=== PATIENT | male | born 1995 | race African-American/Black ===

== ENCOUNTER 2017-10-04 14:12 | Inpatient (IN) | payer MEDICAID ==
[~2017-10-04] VITALS: Ht 172.7 cm; Wt 60.4 kg
[2017-10-04] MEDS ORDERED: SODIUM CHLORIDE 0.9% 1,000 ML IV ONE ×2 (14:15)
[2017-10-04] MEDS ORDERED: INSULIN REGULAR, HUMAN 100 UNITS/ML IVP ONE (14:15)
[2017-10-04 14:39] LABS: HEMATOCRIT 40.6 % (41-53); HEMOGLOBIN 12.9 g/dL (13.5-17.5); MEAN CORPUSCULAR HEMOGLOBIN 30.5 pg (26.0-34.0); MEAN CORPUSCULAR HGB CONC 31.9 G/dL (31.0-37.0); MEAN CORPUSCULAR VOLUME 96 fL (80-100); PLATELET COUNT (AUTO) 331 K/uL (150-450); RED BLOOD CELL COUNT(AUTO) 4.24 MIL/uL (4.50-5.90); RED CELL DISTRIBUTION WIDTH 17.7 % (11.5-14.5)
[2017-10-04 14:45] LABS: WHITE BLOOD COUNT (AUTO) 31.5 K/uL (4.5-11.0)
[2017-10-04 14:50] LABS: INR 1.1 (0.9-1.1)
[2017-10-04 14:52] LABS: ABG BASE EXCESS -35.8 mmol/L (-2.0-3.0); ABG OXYHEMOGLOBIN 97.2 % (94.0-100.0); ABG PCO2 11 mmHg (35-45); ABG PH 6.646 (7.350-7.450); TEMPERATURE, FAHRENHEIT, BG 98.6 FAHREN (96.0-98.6)
[2017-10-04 14:53] LABS: ABG HCO3 2.2 mmol/L (22.0-26.0); ALLEN TEST, BLOOD GAS Positive
[2017-10-04] MEDS ORDERED: INSLAN SQ (14:53)
[2017-10-04] MEDS ORDERED: VECURONIUM BROMIDE 10 MG/VIAL IVP ONE (15:00)
[2017-10-04 15:12] LABS: AMMONIA 140 umol/L (11-32); TROPONIN I < 0.02 ng/mL (0.00-0.05)
[2017-10-04 15:17] LABS: B-TYPE NATRIURETIC PEPTIDE 83 pg/mL (0-100)
[2017-10-04 15:23] LABS: APPEARANCE,URINE CLOUDY (CLEAR); GLUCOSE, URINE (UA) >=1000 mg/dL (NEGATIVE); KETONES,URINE >=80 mg/dL (NEGATIVE); LEUKOCYTE ESTERASE ,URINE NEGATIVE (NEGATIVE); OCCULT BLOOD,URINE TRACE (NEGATIVE); PH,URINE 5.5 (5.0-8.0); PROTEIN,URINE POS 1+ (NEGATIVE)
[2017-10-04 15:25] LABS: ALANINE AMINOTRANSFERASE 19 U/L (12-78); ALBUMIN 3.2 g/dL (3.4-5.0); ASPARTATE AMINOTRANSFERASE 17 U/L (15-37); BILIRUBIN,TOTAL 0.4 mg/dL (0.1-1.0); CALCIUM, TOTAL 8.2 mg/dL (8.8-10.5); CHLORIDE 97 mmol/L (98-107); CREATINE KINASE MB 2.3 ng/mL (0-5); CREATINE KINASE, TOTAL 250 U/L (39-308); CREATININE 2.16 mg/dL (0.60-1.30); GLOMERULAR FILTR. RATE CALC 47 mL/min (>60); POTASSIUM 5.2 mmol/L (3.5-5.1); SODIUM SERUM 133 mmol/L (136-145); TOTAL PROTEIN, SERUM 6.9 g/dL (6.4-8.2); UREA NITROGEN, BLOOD 37 mg/dL (7-18)
[2017-10-04 15:27] LABS: ANION GAP 31 mmol/L (8-16)
[2017-10-04 15:30] LABS: ADD UA MICROSCOPIC YES
[2017-10-04 15:34] LABS: BAND NEUTROPHILS % (MANUAL) 5 % (1-5); EOSINOPHILS % (MANUAL) 1 % (1-6); LYMPHOCYTES % (MANUAL) 11 % (22-44); METAMYELOCYTES % 1 % (0-0); REACTIVE LYMPHOCYTES 6 % (0-0); TOTAL CELLS COUNTED 100
[2017-10-04 15:37] LABS: CARBON DIOXIDE < 5 mmol/L (22-29)
[2017-10-04 15:38] LABS: RBC MORPHOLOGY COMMENT ABNORMAL RBC MORPH
[2017-10-04 15:42] LABS: SQUAMOUS EPITHELIAL CELL,UR Few /LPF (None Seen); WBC,URINE 0-2 /HPF (0-5)
[2017-10-04] MEDS ORDERED: SODIUM CHLORIDE 0.45% 1,000 ML IV PRN (15:54)
[2017-10-04] MEDS ORDERED: DEXTROSE 5%-0.45% SODIUM CHL 1,000 ML IV PRN (15:54)
[2017-10-04] MEDS ORDERED: SODIUM CHLORIDE 0.9% 1,000 ML IV SCH (15:54)
[2017-10-04] MEDS ORDERED: POTASSIUM CHL 20 MEQ/0.45% NS 1,000 ML IV PRN (15:54)
[2017-10-04] MEDS ORDERED: DEXTROSE 50%-WATER 25 GM/50 ML SYRINGE IVP PRN (16:00)
[2017-10-04] MEDS: INSULIN REGULAR, HUMAN 100 UNITS in SODIUM CHLORIDE 0.9% 99 ML IV PRN ×2 (16:34)
[2017-10-04 16:45] LABS: ACETAMINOPHEN < 2 mcg/mL (10-30)
[2017-10-04] MEDS ORDERED: CefTRIAXone 1 GM/DEXTROSE 50 ML IV ONE (16:45)
[2017-10-04 17:03] LABS: GLUCOSE,POINT OF CARE 506 MG/DL (70-110)
[2017-10-04 17:13] LABS: ABG PCO2 26 mmHg (35-45); ABG PH 6.565 (7.350-7.450); ALLEN TEST, BLOOD GAS Positive; TEMPERATURE, FAHRENHEIT, BG 86.9 FAHREN (96.0-98.6)
[2017-10-04 17:14] LABS: ABG A-A DIFF O2 50.5 mmHg (10-20.0); ABG BASE EXCESS -36.1 mmol/L (-2.0-3.0); ABG HCO3 2.1 mmol/L (22.0-26.0); ABG OXYHEMOGLOBIN 98.1 % (94.0-100.0)
[2017-10-04 17:21] LABS: CALCIUM, TOTAL 7.8 mg/dL (8.8-10.5); CHLORIDE 103 mmol/L (98-107); CREATININE 1.91 mg/dL (0.60-1.30); GLOMERULAR FILTR. RATE CALC 54 mL/min (>60); POTASSIUM 4.1 mmol/L (3.5-5.1); SODIUM SERUM 136 mmol/L (136-145); UREA NITROGEN, BLOOD 34 mg/dL (7-18)
[2017-10-04] MEDS ORDERED: SODIUM BICARBONATE [ADULT] 8.4% 50 MEQ/50 ML SYRINGE IVP ONE (17:30)
[2017-10-04 17:32] LABS: ANION GAP 28 mmol/L (8-16); CARBON DIOXIDE < 5 mmol/L (22-29)
[2017-10-04 17:58] LABS: INFLUENZA TYPE B NEGATIVE FOR TYPE B (NEGATIVE)
[2017-10-04 18:12] LABS: GLUCOSE COMMENT 1 Doctor Notified; GLUCOSE,POINT OF CARE 521 MG/DL (70-110)
[2017-10-04] MEDS: INSULIN REGULAR, HUMAN 100 UNITS/ML IVP PRN ×4 (18:18→23:09)
[2017-10-04 19:17] LABS: GLUCOSE,POINT OF CARE 370 MG/DL (70-110)
[2017-10-04 20:27] LABS: GLUCOSE COMMENT 1 Doctor Notified; GLUCOSE,POINT OF CARE 443 MG/DL (70-110)
[2017-10-04] MEDS ORDERED: PROPOFOL 1000 MG/ISO-OSM 100 ML IV PRN (21:00)
[2017-10-04 21:10] VITALS: BP 90/48
[2017-10-04 21:35] LABS: CALCIUM, TOTAL 7.8 mg/dL (8.8-10.5); CREATININE 1.86 mg/dL (0.60-1.30)
[2017-10-04 21:39] LABS: POTASSIUM 2.9 mmol/L (3.5-5.1)
[2017-10-04] MEDS ORDERED: MAGNESIUM SULFATE 4 GM/WATER 100 ML IV PRN (22:30)
[2017-10-04] MEDS ORDERED: MAGNESIUM SULFATE 2 GM in DEXTROSE 5%-WATER 50 ML IV PRN (22:30)
[2017-10-04] MEDS ORDERED: SODIUM CHLORIDE 0.9% 250 ML IV ONE (22:35)
[2017-10-04] MEDS: POTASSIUM CHL 10 MEQ/WATER 50 ML IV PRN ×2 (22:38→23:18)
[2017-10-04] MEDS: POTASSIUM CHLORIDE 40 MEQ in SODIUM CHLORIDE 0.45% 1,000 ML IV PRN (23:10)
[2017-10-04 23:13] LABS: GLUCOSE COMMENT 1 Received Meds; GLUCOSE,POINT OF CARE 349 MG/DL (70-110)
[2017-10-05] VITALS: BP 101/59
[2017-10-05] MEDS: POTASSIUM CHL 10 MEQ/WATER 50 ML IV PRN (00:10)
[2017-10-05] MEDS: INSULIN REGULAR, HUMAN 100 UNITS/ML IVP PRN ×2 (00:12→02:15)
[2017-10-05 00:35] LABS: CALCIUM, TOTAL 7.9 mg/dL (8.8-10.5); CREATININE 1.78 mg/dL (0.60-1.30); POTASSIUM 3.7 mmol/L (3.5-5.1)
[2017-10-05 01:17] LABS: GLUCOSE COMMENT 1 Received Meds; GLUCOSE,POINT OF CARE 276 MG/DL (70-110)
[2017-10-05 01:17] LABS: GLUCOSE COMMENT 1 Received Meds; GLUCOSE,POINT OF CARE 307 MG/DL (70-110)
[2017-10-05 01:33] LABS: GLUCOSE COMMENT 1 Received Meds; GLUCOSE,POINT OF CARE 239 MG/DL (70-110)
[2017-10-05] MEDS: INSULIN REGULAR, HUMAN 100 UNITS in SODIUM CHLORIDE 0.9% 99 ML IV PRN ×4 (02:42→10:24)
[2017-10-05] MEDS ORDERED: 0.9% SODIUM CHLORIDE 10 ML SYRINGE IVP PRN (03:15)
[2017-10-05] MEDS: POTASSIUM CHLORIDE 40 MEQ in SODIUM CHLORIDE 0.45% 1,000 ML IV PRN ×4 (03:32→09:23)
[2017-10-05 04:00] VITALS: BP 101/51
[2017-10-05 05:47] LABS: ALANINE AMINOTRANSFERASE 20 U/L (12-78); ALBUMIN 2.8 g/dL (3.4-5.0); ANION GAP 17 mmol/L (8-16); ASPARTATE AMINOTRANSFERASE 18 U/L (15-37); BILIRUBIN,TOTAL 0.3 mg/dL (0.1-1.0); CALCIUM, TOTAL 8.1 mg/dL (8.8-10.5); CARBON DIOXIDE 12 mmol/L (22-29); CHLORIDE 116 mmol/L (98-107); CREATININE 1.83 mg/dL (0.60-1.30); GLOMERULAR FILTR. RATE CALC 57 mL/min (>60); POTASSIUM 3.8 mmol/L (3.5-5.1); SODIUM SERUM 145 mmol/L (136-145); TOTAL PROTEIN, SERUM 5.8 g/dL (6.4-8.2); UREA NITROGEN, BLOOD 28 mg/dL (7-18)
[2017-10-05 05:57] LABS: PHOSPHORUS < 0.5 mg/dL (2.5-4.9)
[2017-10-05] MEDS ORDERED: POTASSIUM PHOS,M-BASIC-D-BASIC 20 MMOL in SODIUM CHLORIDE 0.45% 500 ML IV ONE (06:30)
[2017-10-05 07:32] LABS: OSMOLALITY 328 mOS/kg (270-310)
[2017-10-05] MEDS: PROPOFOL 1000 MG/ISO-OSM 100 ML IV PRN ×3 (07:42→20:20)
[2017-10-05 08:00] VITALS: BP 120/64
[2017-10-05 08:01] LABS: ABG A-A DIFF O2 55.2 mmHg (10-20.0); ABG BASE EXCESS -16.3 mmol/L (-2.0-3.0); ABG HCO3 13.1 mmol/L (22.0-26.0); ABG OXYHEMOGLOBIN 98.3 % (94.0-100.0); ABG PCO2 28 mmHg (35-45); TEMPERATURE, FAHRENHEIT, BG 98.8 FAHREN (96.0-98.6)
[2017-10-05 08:02] LABS: ABG PH 7.222 (7.350-7.450); ALLEN TEST, BLOOD GAS Positive
[2017-10-05] MEDS: PANTOPRAZOLE SODIUM 40 MG/VIAL IVP SCH (08:03)
[2017-10-05 09:13] LABS: GLUCOSE,POINT OF CARE 125 MG/DL (70-110)
[2017-10-05 09:13] LABS: GLUCOSE COMMENT 1 Received Meds; GLUCOSE,POINT OF CARE 191 MG/DL (70-110)
[2017-10-05 09:17] LABS: GLUCOSE COMMENT 1 Received Meds; GLUCOSE,POINT OF CARE 179 MG/DL (70-110)
[2017-10-05 09:17] LABS: GLUCOSE COMMENT 1 Received Meds; GLUCOSE,POINT OF CARE 187 MG/DL (70-110)
[2017-10-05 09:17] LABS: GLUCOSE COMMENT 1 Received Meds; GLUCOSE,POINT OF CARE 256 MG/DL (70-110)
[2017-10-05 09:17] LABS: GLUCOSE COMMENT 1 Received Meds; GLUCOSE,POINT OF CARE 222 MG/DL (70-110)
[2017-10-05 09:17] LABS: GLUCOSE COMMENT 1 Received Meds; GLUCOSE,POINT OF CARE 229 MG/DL (70-110)
[2017-10-05 09:17] LABS: GLUCOSE COMMENT 1 Received Meds; GLUCOSE,POINT OF CARE 173 MG/DL (70-110)
[2017-10-05] MEDS ORDERED: MAGNESIUM SULFATE 2 GM in DEXTROSE 5%-WATER 50 ML IV ONE (10:00)
[2017-10-05 11:04] LABS: HEMATOCRIT 34.2 % (41-53); HEMOGLOBIN 11.5 g/dL (13.5-17.5); MEAN CORPUSCULAR HEMOGLOBIN 31.2 pg (26.0-34.0); MEAN CORPUSCULAR HGB CONC 33.7 G/dL (31.0-37.0); MEAN CORPUSCULAR VOLUME 92 fL (80-100); PLATELET COUNT (AUTO) 272 K/uL (150-450); RED CELL DISTRIBUTION WIDTH 17.4 % (11.5-14.5); WHITE BLOOD COUNT (AUTO) 20.2 K/uL (4.5-11.0)
[2017-10-05 11:46] LABS: ANION GAP 7 mmol/L (8-16); CARBON DIOXIDE 18 mmol/L (22-29); CHLORIDE 120 mmol/L (98-107); CREATININE 1.72 mg/dL (0.60-1.30); GLOMERULAR FILTR. RATE CALC > 60 mL/min (>60); POTASSIUM 3.8 mmol/L (3.5-5.1); SODIUM SERUM 145 mmol/L (136-145); UREA NITROGEN, BLOOD 24 mg/dL (7-18)
[2017-10-05 12:00] VITALS: BP 125/70
[2017-10-05 12:30] LABS: RBC MORPHOLOGY COMMENT ABNORMAL R
[2017-10-05] MEDS ORDERED: INSULIN GLARGINE,HUM.REC.ANLOG 100 UNITS/ML SQ ONE (12:30)
[2017-10-05 12:32] LABS: GLUCOSE,POINT OF CARE 57 MG/DL (70-110)
[2017-10-05 12:32] LABS: GLUCOSE,POINT OF CARE 89 MG/DL (70-110)
[2017-10-05 12:32] LABS: GLUCOSE,POINT OF CARE 108 MG/DL (70-110)
[2017-10-05 12:40] LABS: BAND NEUTROPHILS % (MANUAL) 9 % (1-5); LYMPHOCYTES % (MANUAL) 8 % (22-44); TOTAL CELLS COUNTED 100
[2017-10-05] MEDS ORDERED: [UNRECOGNIZED DRUG - REMARK] IV PRN ×2 (13:00)
[2017-10-05] MEDS: INSULIN REGULAR, HUMAN 100 UNITS/ML SQ PRN ×4 (13:02→23:37)
[2017-10-05 14:03] LABS: GLUCOSE,POINT OF CARE 134 MG/DL (70-110)
[2017-10-05] MEDS ORDERED: SODIUM BICARBONATE [ADULT] 8.4% 50 MEQ/50 ML SYRINGE IVP ONE (15:15)
[2017-10-05 16:00] VITALS: BP 156/75
[2017-10-05 16:26] LABS: ABG A-A DIFF O2 43.8 mmHg (10-20.0); ABG BASE EXCESS -9.7 mmol/L (-2.0-3.0); ABG HCO3 18.2 mmol/L (22.0-26.0); ABG OXYHEMOGLOBIN 97.7 % (94.0-100.0); ABG PCO2 22 mmHg (35-45); ABG PH 7.444 (7.350-7.450); ALLEN TEST, BLOOD GAS Positive; TEMPERATURE, FAHRENHEIT, BG 98.8 FAHREN (96.0-98.6)
[2017-10-05] MEDS: CefTRIAXone 1 GM/DEXTROSE 50 ML IV SCH (16:29)
[2017-10-05 17:42] LABS: MAGNESIUM 2.2 mg/dL (1.80-2.40)
[2017-10-05 18:08] LABS: PHOSPHORUS 0.8 mg/dL (2.5-4.9)
[2017-10-05 20:00] VITALS: BP 118/74
[2017-10-05] MEDS ORDERED: DEXTROSE 5% IV ONE (20:00)
[2017-10-05] MEDS ORDERED: WATER IV ONE (20:00)
[2017-10-05] MEDS ORDERED: SODIUM CHLORIDE 0.45% 1,000 ML IV SCH (20:00)
[2017-10-05] MEDS ORDERED: POTASSIUM PHOS M BASIC D BASIC IV ONE (20:00)
[2017-10-05 20:29] LABS: ANION GAP 17 mmol/L (8-16); CALCIUM, TOTAL 8.7 mg/dL (8.8-10.5); CARBON DIOXIDE 16 mmol/L (22-29); CHLORIDE 118 mmol/L (98-107); CREATININE 1.52 mg/dL (0.60-1.30); GLOMERULAR FILTR. RATE CALC > 60 mL/min (>60); POTASSIUM 3.1 mmol/L (3.5-5.1); SODIUM SERUM 151 mmol/L (136-145); UREA NITROGEN, BLOOD 22 mg/dL (7-18)
[2017-10-05] MEDS: DEXTROSE 50%-WATER 25 GM/50 ML SYRINGE IVP PRN (21:13)
[2017-10-06] VITALS: BP 111/62
[2017-10-06 00:23] LABS: ANION GAP 15 mmol/L (8-16); CALCIUM, TOTAL 8.1 mg/dL (8.8-10.5); CARBON DIOXIDE 16 mmol/L (22-29); CHLORIDE 116 mmol/L (98-107); CREATININE 1.69 mg/dL (0.60-1.30); GLOMERULAR FILTR. RATE CALC > 60 mL/min (>60); POTASSIUM 3.6 mmol/L (3.5-5.1); SODIUM SERUM 147 mmol/L (136-145); UREA NITROGEN, BLOOD 23 mg/dL (7-18)
[2017-10-06] MEDS: INSULIN REGULAR, HUMAN 100 UNITS/ML SQ PRN (01:09)
[2017-10-06] MEDS: PROPOFOL 1000 MG/ISO-OSM 100 ML IV PRN ×5 (01:25→19:47)
[2017-10-06 04:00] VITALS: BP 121/72
[2017-10-06 05:12] LABS: GLUCOSE,POINT OF CARE 121 MG/DL (70-110)
[2017-10-06 05:12] LABS: GLUCOSE,POINT OF CARE 56 MG/DL (70-110)
[2017-10-06 05:12] LABS: GLUCOSE,POINT OF CARE 87 MG/DL (70-110)
[2017-10-06 05:12] LABS: GLUCOSE COMMENT 1 Received Meds; GLUCOSE,POINT OF CARE 189 MG/DL (70-110)
[2017-10-06 05:12] LABS: GLUCOSE,POINT OF CARE 162 MG/DL (70-110)
[2017-10-06 05:32] LABS: GLUCOSE,POINT OF CARE 124 MG/DL (70-110)
[2017-10-06 05:33] LABS: GLUCOSE,POINT OF CARE 95 MG/DL (70-110)
[2017-10-06 05:37] LABS: HEMATOCRIT 32.1 % (41-53); HEMOGLOBIN 10.8 g/dL (13.5-17.5); MEAN CORPUSCULAR HEMOGLOBIN 30.7 pg (26.0-34.0); MEAN CORPUSCULAR HGB CONC 33.5 G/dL (31.0-37.0); MEAN CORPUSCULAR VOLUME 92 fL (80-100); PLATELET COUNT (AUTO) 246 K/uL (150-450); RED BLOOD CELL COUNT(AUTO) 3.51 MIL/uL (4.50-5.90); RED CELL DISTRIBUTION WIDTH 17.6 % (11.5-14.5); WHITE BLOOD COUNT (AUTO) 19.9 K/uL (4.5-11.0)
[2017-10-06 05:38] LABS: ANION GAP 14 mmol/L (8-16); CARBON DIOXIDE 18 mmol/L (22-29); CHLORIDE 116 mmol/L (98-107); CREATININE 1.62 mg/dL (0.60-1.30); GLOMERULAR FILTR. RATE CALC > 60 mL/min (>60); PHOSPHORUS 3.7 mg/dL (2.5-4.9); SODIUM SERUM 148 mmol/L (136-145); UREA NITROGEN, BLOOD 21 mg/dL (7-18)
[2017-10-06 05:43] LABS: POTASSIUM 2.8 mmol/L (3.5-5.1)
[2017-10-06 06:10] LABS: BAND NEUTROPHILS % (MANUAL) 10 % (1-5); EOSINOPHILS % (MANUAL) 1 % (1-6); LYMPHOCYTES % (MANUAL) 23 % (22-44); RBC MORPHOLOGY COMMENT ABNORMAL RBC MORPH; TOTAL CELLS COUNTED 100
[2017-10-06] MEDS ORDERED: POTASSIUM CHLORIDE 10% 40 MEQ/30 ML LIQUID UDCUP GT ONE (06:30)
[2017-10-06] MEDS ORDERED: CITRIC ACID GT ONE (06:30)
[2017-10-06] MEDS ORDERED: POTASSIUM CITRATE GT ONE (06:30)
[2017-10-06] MEDS: POTASSIUM CHL 10 MEQ/WATER 50 ML IV SCH ×4 (06:37→09:24)
[2017-10-06 07:12] LABS: GLUCOSE,POINT OF CARE 92 MG/DL (70-110)
[2017-10-06 08:00] VITALS: BP 115/67
[2017-10-06] MEDS: PANTOPRAZOLE SODIUM 40 MG/VIAL IVP SCH (08:03)
[2017-10-06] MEDS ORDERED: POTASSIUM CHLORIDE 20 MEQ in DEXTROSE 5%-WATER 1,000 ML IV ONE (10:00)
[2017-10-06 10:22] LABS: GLUCOSE,POINT OF CARE 108 MG/DL (70-110)
[2017-10-06 12:00] VITALS: BP 117/68
[2017-10-06 12:24] LABS: ANION GAP 16 mmol/L (8-16); CALCIUM, TOTAL 8.2 mg/dL (8.8-10.5); CARBON DIOXIDE 14 mmol/L (22-29); CHLORIDE 115 mmol/L (98-107); CREATININE 1.65 mg/dL (0.60-1.30); GLOMERULAR FILTR. RATE CALC > 60 mL/min (>60); PHOSPHORUS 3.2 mg/dL (2.5-4.9); POTASSIUM 3.6 mmol/L (3.5-5.1); SODIUM SERUM 145 mmol/L (136-145); UREA NITROGEN, BLOOD 20 mg/dL (7-18)
[2017-10-06] MEDS ORDERED: POTASSIUM CHL 20 MEQ/0.45% NS 1,000 ML IV PRN (13:40)
[2017-10-06] MEDS ORDERED: INSULIN REGULAR, HUMAN 100 UNITS in SODIUM CHLORIDE 0.9% 99 ML IV PRN ×2 (13:40)
[2017-10-06] MEDS ORDERED: SODIUM CHLORIDE 0.45% 1,000 ML IV PRN (13:40)
[2017-10-06] MEDS ORDERED: SODIUM CHLORIDE 0.9% 1,000 ML IV SCH (13:40)
[2017-10-06 13:42] LABS: ABG A-A DIFF O2 35.1 mmHg (10-20.0); ABG BASE EXCESS -14.6 mmol/L (-2.0-3.0); ABG HCO3 14.6 mmol/L (22.0-26.0); ABG OXYHEMOGLOBIN 97.4 % (94.0-100.0); TEMPERATURE, FAHRENHEIT, BG 99.2 FAHREN (96.0-98.6)
[2017-10-06 13:43] LABS: ABG PCO2 19 mmHg (35-45); ALLEN TEST, BLOOD GAS Positive
[2017-10-06] MEDS ORDERED: DEXTROSE 50%-WATER 25 GM/50 ML SYRINGE IVP PRN (13:45)
[2017-10-06] MEDS ORDERED: INSULIN REGULAR, HUMAN 100 UNITS/ML IVP ONE (13:45)
[2017-10-06] MEDS ORDERED: INSULIN REGULAR, HUMAN 100 UNITS/ML IVP PRN (13:45)
[2017-10-06 14:43] LABS: BASOPHILS % (AUTO) 0.3 % (0.0-2.0); EOSINOPHILS % (AUTO) 0.2 % (1.0-6.0); HEMATOCRIT 30.3 % (41-53); HEMOGLOBIN 10.2 g/dL (13.5-17.5); LYMPHOCYTES # (AUTO) 2.4 K/uL (1.0-4.8); LYMPHOCYTES % (AUTO) 14.7 % (22.0-44.0); MEAN CORPUSCULAR HEMOGLOBIN 30.9 pg (26.0-34.0); MEAN CORPUSCULAR HGB CONC 33.8 G/dL (31.0-37.0); MEAN CORPUSCULAR VOLUME 91 fL (80-100); MONOCYTES # (AUTO) 2.5 K/uL (0.1-1.0); NEUTROPHILS # (AUTO) 11.6 K/uL (1.8-7.7); NEUTROPHILS % (AUTO) 69.8 % (40.0-70.0); PLATELET COUNT (AUTO) 228 K/uL (150-450); RED BLOOD CELL COUNT(AUTO) 3.31 MIL/uL (4.50-5.90); RED CELL DISTRIBUTION WIDTH 18.4 % (11.5-14.5); WHITE BLOOD COUNT (AUTO) 16.6 K/uL (4.5-11.0)
[2017-10-06 14:57] LABS: ANION GAP 18 mmol/L (8-16); CALCIUM, TOTAL 8.3 mg/dL (8.8-10.5); CARBON DIOXIDE 12 mmol/L (22-29); CHLORIDE 112 mmol/L (98-107); CREATININE 1.65 mg/dL (0.60-1.30); GLOMERULAR FILTR. RATE CALC > 60 mL/min (>60); POTASSIUM 3.5 mmol/L (3.5-5.1); SODIUM SERUM 142 mmol/L (136-145); UREA NITROGEN, BLOOD 20 mg/dL (7-18)
[2017-10-06 16:00] VITALS: BP 132/77
[2017-10-06] MEDS: CefTRIAXone 1 GM/DEXTROSE 50 ML IV SCH (16:15)
[2017-10-06] MEDS: POTASSIUM CHLORIDE 40 MEQ in SODIUM CHLORIDE 0.45% 1,000 ML IV PRN ×2 (16:19→19:44)
[2017-10-06 16:43] LABS: RBC MORPHOLOGY COMMENT ABNORMAL RBC MORPH
[2017-10-06 19:09] LABS: ANION GAP 18 mmol/L (8-16); CALCIUM, TOTAL 8.2 mg/dL (8.8-10.5); CARBON DIOXIDE 15 mmol/L (22-29); CHLORIDE 114 mmol/L (98-107); CREATININE 1.48 mg/dL (0.60-1.30); GLOMERULAR FILTR. RATE CALC > 60 mL/min (>60); SODIUM SERUM 147 mmol/L (136-145); UREA NITROGEN, BLOOD 16 mg/dL (7-18)
[2017-10-06 19:27] LABS: POTASSIUM 2.6 mmol/L (3.5-5.1)
[2017-10-06] MEDS: DEXTROSE 5%-0.45% SODIUM CHL 1,000 ML IV PRN (19:41)
[2017-10-06] MEDS: POTASSIUM CHL 10 MEQ/WATER 50 ML IV PRN ×4 (19:45→22:01)
[2017-10-06 20:00] VITALS: BP 121/66
[2017-10-06] MEDS ORDERED: INSULIN GLARGINE,HUM.REC.ANLOG 100 UNITS/ML SQ SCH (21:00)
[2017-10-07] VITALS: BP 122/75
[2017-10-07 00:23] LABS: ANION GAP 13 mmol/L (8-16); CARBON DIOXIDE 18 mmol/L (22-29); CHLORIDE 115 mmol/L (98-107); CREATININE 1.27 mg/dL (0.60-1.30); GLOMERULAR FILTR. RATE CALC > 60 mL/min (>60); POTASSIUM 3.5 mmol/L (3.5-5.1); SODIUM SERUM 146 mmol/L (136-145); UREA NITROGEN, BLOOD 14 mg/dL (7-18)
[2017-10-07] MEDS: PROPOFOL 1000 MG/ISO-OSM 100 ML IV PRN ×5 (00:33→22:06)
[2017-10-07] MEDS: POTASSIUM CHLORIDE 40 MEQ in SODIUM CHLORIDE 0.45% 1,000 ML IV PRN (02:44)
[2017-10-07 04:00] VITALS: BP 140/90
[2017-10-07 04:52] LABS: GLUCOSE,POINT OF CARE 244 MG/DL (70-110)
[2017-10-07 04:52] LABS: GLUCOSE COMMENT 1 Received Meds; GLUCOSE,POINT OF CARE 217 MG/DL (70-110)
[2017-10-07 04:52] LABS: GLUCOSE,POINT OF CARE 237 MG/DL (70-110)
[2017-10-07 04:52] LABS: GLUCOSE COMMENT 1 Received Meds; GLUCOSE,POINT OF CARE 155 MG/DL (70-110)
[2017-10-07 04:52] LABS: GLUCOSE COMMENT 1 Received Meds; GLUCOSE,POINT OF CARE 141 MG/DL (70-110)
[2017-10-07 04:52] LABS: GLUCOSE,POINT OF CARE 93 MG/DL (70-110)
[2017-10-07 04:52] LABS: GLUCOSE,POINT OF CARE 95 MG/DL (70-110)
[2017-10-07 04:52] LABS: GLUCOSE,POINT OF CARE 241 MG/DL (70-110)
[2017-10-07 04:52] LABS: GLUCOSE,POINT OF CARE 280 MG/DL (70-110)
[2017-10-07 04:52] LABS: GLUCOSE COMMENT 1 Received Meds; GLUCOSE,POINT OF CARE 215 MG/DL (70-110)
[2017-10-07 04:52] LABS: GLUCOSE,POINT OF CARE 269 MG/DL (70-110)
[2017-10-07 04:52] LABS: GLUCOSE,POINT OF CARE 295 MG/DL (70-110)
[2017-10-07 06:12] LABS: GLUCOSE COMMENT 1 Received Meds; GLUCOSE,POINT OF CARE 190 MG/DL (70-110)
[2017-10-07] MEDS: DEXTROSE 5%-0.45% SODIUM CHL 1,000 ML IV PRN (06:26)
[2017-10-07 07:23] LABS: ALANINE AMINOTRANSFERASE 16 U/L (12-78); ALBUMIN 2.2 g/dL (3.4-5.0); ANION GAP 11 mmol/L (8-16); ASPARTATE AMINOTRANSFERASE 11 U/L (15-37); BILIRUBIN,TOTAL 0.4 mg/dL (0.1-1.0); CALCIUM, TOTAL 7.9 mg/dL (8.8-10.5); CARBON DIOXIDE 19 mmol/L (22-29); CHLORIDE 114 mmol/L (98-107); CREATININE 1.27 mg/dL (0.60-1.30); GLOMERULAR FILTR. RATE CALC > 60 mL/min (>60); PHOSPHORUS 2.7 mg/dL (2.5-4.9); SODIUM SERUM 144 mmol/L (136-145); UREA NITROGEN, BLOOD 13 mg/dL (7-18)
[2017-10-07 08:00] VITALS: BP 144/88
[2017-10-07] MEDS: PANTOPRAZOLE SODIUM 40 MG/VIAL IVP SCH (08:38)
[2017-10-07] MEDS: DEXTROSE 50%-WATER 25 GM/50 ML SYRINGE IVP PRN (09:07)
[2017-10-07] MEDS: POTASSIUM CHL 10 MEQ/WATER 50 ML IV PRN ×5 (09:50→23:52)
[2017-10-07 10:02] LABS: GLUCOSE COMMENT 1 Received Meds; GLUCOSE,POINT OF CARE 60 MG/DL (70-110)
[2017-10-07 10:02] LABS: GLUCOSE COMMENT 1 Received Meds; GLUCOSE,POINT OF CARE 99 MG/DL (70-110)
[2017-10-07 10:12] LABS: GLUCOSE COMMENT 1 Received Meds; GLUCOSE,POINT OF CARE 167 MG/DL (70-110)
[2017-10-07 10:12] LABS: GLUCOSE,POINT OF CARE 122 MG/DL (70-110)
[2017-10-07 11:28] LABS: ANION GAP 16 mmol/L (8-16); CALCIUM, TOTAL 8.2 mg/dL (8.8-10.5); CARBON DIOXIDE 14 mmol/L (22-29); CHLORIDE 113 mmol/L (98-107); CREATININE 1.19 mg/dL (0.60-1.30); GLOMERULAR FILTR. RATE CALC > 60 mL/min (>60); POTASSIUM 4.4 mmol/L (3.5-5.1); SODIUM SERUM 143 mmol/L (136-145); UREA NITROGEN, BLOOD 11 mg/dL (7-18)
[2017-10-07 11:52] LABS: GLUCOSE COMMENT 1 Received Meds; GLUCOSE,POINT OF CARE 173 MG/DL (70-110)
[2017-10-07 12:00] VITALS: BP 99/74
[2017-10-07] MEDS ORDERED: INSULIN REGULAR, HUMAN 100 UNITS/ML SQ PRN (12:45)
[2017-10-07] MEDS ORDERED: DEXTROSE 50%-WATER 25 GM/50 ML SYRINGE IVP PRN (12:45)
[2017-10-07] MEDS ORDERED: ACETAMINOPHEN 650 MG/20.3 ML SOLUTION UDCUP NG PRN ×2 (12:45→13:30)
[2017-10-07] MEDS: SODIUM CHLORIDE 0.45% 1,000 ML IV SCH ×2 (12:57→20:04)
[2017-10-07] MEDS: INSULIN REGULAR, HUMAN 100 UNITS/ML SQ PRN (13:05)
[2017-10-07 13:07] LABS: GLUCOSE COMMENT 1 Received Meds; GLUCOSE,POINT OF CARE 225 MG/DL (70-110)
[2017-10-07 13:12] LABS: GLUCOSE COMMENT 1 Received Meds; GLUCOSE,POINT OF CARE 214 MG/DL (70-110)
[2017-10-07 13:32] LABS: ANION GAP 13 mmol/L (8-16); CARBON DIOXIDE 16 mmol/L (22-29); CHLORIDE 111 mmol/L (98-107); POTASSIUM 3.7 mmol/L (3.5-5.1); UREA NITROGEN, BLOOD 14 mg/dL (7-18)
[2017-10-07 13:33] LABS: CALCIUM, TOTAL 7.9 mg/dL (8.8-10.5); CREATININE 1.33 mg/dL (0.60-1.30); GLOMERULAR FILTR. RATE CALC > 60 mL/min (>60); SODIUM SERUM 140 mmol/L (136-145)
[2017-10-07 14:51] LABS: TEMPERATURE, FAHRENHEIT, BG 98.2 FAHREN (96.0-98.6)
[2017-10-07 14:53] LABS: ABG A-A DIFF O2 125.4 mmHg (10-20.0); ABG BASE EXCESS -16.5 mmol/L (-2.0-3.0); ABG HCO3 13.6 mmol/L (22.0-26.0)
[2017-10-07 14:54] LABS: ABG PCO2 15 mmHg (35-45); ALLEN TEST, BLOOD GAS Positive
[2017-10-07] MEDS ORDERED: SODIUM PHOS,M-BASIC-D-BASIC 30 MMOL in DEXTROSE 5%-WATER 250 ML IV ONE (15:00)
[2017-10-07 16:00] VITALS: BP 138/61
[2017-10-07] MEDS ORDERED: SODIUM CHLORIDE 0.9% 250 ML IV ONE (16:07)
[2017-10-07 16:39] LABS: ANION GAP 13 mmol/L (8-16); CALCIUM, TOTAL 8.1 mg/dL (8.8-10.5); CARBON DIOXIDE 15 mmol/L (22-29); CHLORIDE 114 mmol/L (98-107); CREATININE 1.23 mg/dL (0.60-1.30); GLOMERULAR FILTR. RATE CALC > 60 mL/min (>60); POTASSIUM 4.5 mmol/L (3.5-5.1); SODIUM SERUM 142 mmol/L (136-145); UREA NITROGEN, BLOOD 11 mg/dL (7-18)
[2017-10-07] MEDS: CefTRIAXone 1 GM/DEXTROSE 50 ML IV SCH (16:46)
[2017-10-07 17:53] LABS: GLUCOSE COMMENT 1 Received Meds; GLUCOSE,POINT OF CARE 220 MG/DL (70-110)
[2017-10-07] MEDS ORDERED: DEXTROSE 5%-0.45% SODIUM CHL 1,000 ML IV ONE (20:27)
[2017-10-07] MEDS: DEXTROSE 5%-0.45% SODIUM CHL 1,000 ML IV SCH (20:29)
[2017-10-07] MEDS: INSULIN GLARGINE,HUM.REC.ANLOG 100 UNITS/ML SQ SCH (20:31)
[2017-10-07] MEDS: INSULIN REGULAR, HUMAN 100 UNITS in SODIUM CHLORIDE 0.9% 99 ML IV SCH ×2 (20:50)
[2017-10-07 21:28] LABS: ANION GAP 13 mmol/L (8-16); CALCIUM, TOTAL 7.5 mg/dL (8.8-10.5); CARBON DIOXIDE 19 mmol/L (22-29); CHLORIDE 111 mmol/L (98-107); CREATININE 1.05 mg/dL (0.60-1.30); GLOMERULAR FILTR. RATE CALC > 60 mL/min (>60); POTASSIUM 3.1 mmol/L (3.5-5.1); SODIUM SERUM 143 mmol/L (136-145); UREA NITROGEN, BLOOD 10 mg/dL (7-18)
[2017-10-07 22:58] LABS: GLUCOSE,POINT OF CARE 202 MG/DL (70-110)
[2017-10-07 22:58] LABS: GLUCOSE COMMENT 1 Doctor Notified; GLUCOSE,POINT OF CARE 196 MG/DL (70-110)
[2017-10-07 22:58] LABS: GLUCOSE COMMENT 1 Received Meds; GLUCOSE,POINT OF CARE 195 MG/DL (70-110)
[2017-10-07] MEDS ORDERED: MAGNESIUM SULFATE 4 GM/WATER 100 ML IV ONE (23:30)
[2017-10-08] VITALS (7 sets, daily range): BP systolic 105–123; BP diastolic 61–76
[2017-10-08] MEDS: POTASSIUM CHL 10 MEQ/WATER 50 ML IV PRN ×11 (00:49→21:04)
[2017-10-08 01:28] LABS: ANION GAP 13 mmol/L (8-16); CALCIUM, TOTAL 7.4 mg/dL (8.8-10.5); CARBON DIOXIDE 19 mmol/L (22-29); CHLORIDE 110 mmol/L (98-107); CREATININE 1.02 mg/dL (0.60-1.30); GLOMERULAR FILTR. RATE CALC > 60 mL/min (>60); POTASSIUM 3.3 mmol/L (3.5-5.1); SODIUM SERUM 142 mmol/L (136-145); UREA NITROGEN, BLOOD 8 mg/dL (7-18)
[2017-10-08] MEDS: PROPOFOL 1000 MG/ISO-OSM 100 ML IV PRN ×2 (02:42→09:19)
[2017-10-08 03:22] LABS: GLUCOSE COMMENT 1 Received Meds; GLUCOSE,POINT OF CARE 227 MG/DL (70-110)
[2017-10-08 03:22] LABS: GLUCOSE COMMENT 1 Received Meds; GLUCOSE,POINT OF CARE 245 MG/DL (70-110)
[2017-10-08 03:22] LABS: GLUCOSE COMMENT 1 Received Meds; GLUCOSE,POINT OF CARE 221 MG/DL (70-110)
[2017-10-08 03:22] LABS: GLUCOSE COMMENT 1 Received Meds; GLUCOSE,POINT OF CARE 212 MG/DL (70-110)
[2017-10-08] MEDS: DEXTROSE 5%-0.45% SODIUM CHL 1,000 ML IV SCH ×3 (03:41→20:23)
[2017-10-08 05:04] LABS: BASOPHILS # (AUTO) 0.07 K/uL (0.00-0.20); BASOPHILS % (AUTO) 0.5 % (0.0-2.0); EOSINOPHILS # (AUTO) 0.12 K/uL (0.00-0.70); EOSINOPHILS % (AUTO) 0.83 % (1.0-6.0); HEMATOCRIT 29.3 % (41-53); HEMOGLOBIN 9.8 g/dL (13.5-17.5); LYMPHOCYTES # (AUTO) 2.3 K/uL (1.0-4.8); LYMPHOCYTES % (AUTO) 15.1 % (22.0-44.0); MEAN CORPUSCULAR HEMOGLOBIN 30.9 pg (26.0-34.0); MEAN CORPUSCULAR HGB CONC 33.6 G/dL (31.0-37.0); MEAN CORPUSCULAR VOLUME 92 fL (80-100); MONOCYTES # (AUTO) 1.8 K/uL (0.1-1.0); NEUTROPHILS # (AUTO) 10.8 K/uL (1.8-7.7); NEUTROPHILS % (AUTO) 71.6 % (40.0-70.0); PLATELET COUNT (AUTO) 178 K/uL (150-450); RED BLOOD CELL COUNT(AUTO) 3.18 MIL/uL (4.50-5.90); RED CELL DISTRIBUTION WIDTH 18.3 % (11.5-14.5)
[2017-10-08 05:22] LABS: ANION GAP 10 mmol/L (8-16); CALCIUM, TOTAL 7.4 mg/dL (8.8-10.5); CARBON DIOXIDE 19 mmol/L (22-29); CHLORIDE 114 mmol/L (98-107); CREATININE 1.07 mg/dL (0.60-1.30); GLOMERULAR FILTR. RATE CALC > 60 mL/min (>60); PHOSPHORUS 3.9 mg/dL (2.5-4.9); POTASSIUM 3.4 mmol/L (3.5-5.1); SODIUM SERUM 143 mmol/L (136-145); UREA NITROGEN, BLOOD 8 mg/dL (7-18)
[2017-10-08 07:38] LABS: GLUCOSE COMMENT 1 Received Meds; GLUCOSE,POINT OF CARE 227 MG/DL (70-110)
[2017-10-08 07:42] LABS: GLUCOSE COMMENT 1 Received Meds; GLUCOSE,POINT OF CARE 228 MG/DL (70-110)
[2017-10-08 07:42] LABS: GLUCOSE COMMENT 1 Received Meds; GLUCOSE,POINT OF CARE 230 MG/DL (70-110)
[2017-10-08] MEDS: PANTOPRAZOLE SODIUM 40 MG/VIAL IVP SCH (09:25)
[2017-10-08 09:42] LABS: RBC MORPHOLOGY COMMENT ABNORMAL RBC MORPH
[2017-10-08 09:56] LABS: ABG A-A DIFF O2 30.1 mmHg (10-20.0); ABG BASE EXCESS -6.6 mmol/L (-2.0-3.0); ABG HCO3 20.4 mmol/L (22.0-26.0); ABG OXYHEMOGLOBIN 98.5 % (94.0-100.0); ABG PCO2 20 mmHg (35-45); ABG PH 7.527 (7.350-7.450); TEMPERATURE, FAHRENHEIT, BG 98.9 FAHREN (96.0-98.6)
[2017-10-08 09:57] LABS: ALLEN TEST, BLOOD GAS POS
[2017-10-08 10:12] LABS: GLUCOSE,POINT OF CARE 249 MG/DL (70-110)
[2017-10-08 10:12] LABS: GLUCOSE,POINT OF CARE 269 MG/DL (70-110)
[2017-10-08 11:35] LABS: ABG A-A DIFF O2 85.2 mmHg (10-20.0); ABG BASE EXCESS -7.5 mmol/L (-2.0-3.0); ABG HCO3 19.5 mmol/L (22.0-26.0); ABG OXYHEMOGLOBIN 96.5 % (94.0-100.0); ABG PCO2 26 mmHg (35-45); ABG PH 7.426 (7.350-7.450); TEMPERATURE, FAHRENHEIT, BG 98.9 FAHREN (96.0-98.6)
[2017-10-08 11:36] LABS: ALLEN TEST, BLOOD GAS POSITIVE
[2017-10-08 13:51] LABS: ANION GAP 11 mmol/L (8-16); CALCIUM, TOTAL 7.8 mg/dL (8.8-10.5); CARBON DIOXIDE 19 mmol/L (22-29); CHLORIDE 112 mmol/L (98-107); CREATININE 0.93 mg/dL (0.60-1.30); GLOMERULAR FILTR. RATE CALC > 60 mL/min (>60); PHOSPHORUS 4.2 mg/dL (2.5-4.9); POTASSIUM 3.6 mmol/L (3.5-5.1); SODIUM SERUM 142 mmol/L (136-145); UREA NITROGEN, BLOOD 7 mg/dL (7-18)
[2017-10-08 15:08] LABS: GLUCOSE COMMENT 1 Received Meds; GLUCOSE,POINT OF CARE 245 MG/DL (70-110)
[2017-10-08 17:42] LABS: ANION GAP 8 mmol/L (8-16); CARBON DIOXIDE 21 mmol/L (22-29); CHLORIDE 113 mmol/L (98-107); CREATININE 0.99 mg/dL (0.60-1.30); GLOMERULAR FILTR. RATE CALC > 60 mL/min (>60); POTASSIUM 3.4 mmol/L (3.5-5.1); SODIUM SERUM 142 mmol/L (136-145); UREA NITROGEN, BLOOD 7 mg/dL (7-18)
[2017-10-08] MEDS: CefTRIAXone 1 GM/DEXTROSE 50 ML IV SCH (19:08)
[2017-10-08] MEDS: OXYGEN THERAPY IH SCH ×2 (19:08→20:00)
[2017-10-08 20:12] LABS: GLUCOSE,POINT OF CARE 217 MG/DL (70-110)
[2017-10-08] MEDS: INSULIN GLARGINE,HUM.REC.ANLOG 100 UNITS/ML SQ SCH (20:35)
[2017-10-08] MEDS ORDERED: INSULIN DETEMIR 100 UNITS/ML SQ SCH (21:00)
[2017-10-08] MEDS: INSULIN REGULAR, HUMAN 100 UNITS in SODIUM CHLORIDE 0.9% 99 ML IV SCH ×2 (21:20)
[2017-10-08 22:02] LABS: GLUCOSE COMMENT 1 Received Meds; GLUCOSE,POINT OF CARE 234 MG/DL (70-110)
[2017-10-09] VITALS: BP 105/68
[2017-10-09 04:00] VITALS: BP 117/80
[2017-10-09] MEDS: DEXTROSE 5%-0.45% SODIUM CHL 1,000 ML IV SCH (04:58)
[2017-10-09 05:13] LABS: ANION GAP 4 mmol/L (8-16); CALCIUM, TOTAL 7.7 mg/dL (8.8-10.5); CARBON DIOXIDE 24 mmol/L (22-29); CHLORIDE 113 mmol/L (98-107); CREATININE 0.82 mg/dL (0.60-1.30); GLOMERULAR FILTR. RATE CALC > 60 mL/min (>60); PHOSPHORUS 4.4 mg/dL (2.5-4.9); POTASSIUM 3.1 mmol/L (3.5-5.1); SODIUM SERUM 141 mmol/L (136-145); UREA NITROGEN, BLOOD 5 mg/dL (7-18)
[2017-10-09] MEDS: POTASSIUM CHL 10 MEQ/WATER 50 ML IV PRN ×3 (05:54→06:59)
[2017-10-09] MEDS ORDERED: SODIUM CHLORIDE 0.9% 50 ML ONE (05:59)
[2017-10-09 06:07] LABS: GLUCOSE COMMENT 1 Received Meds; GLUCOSE,POINT OF CARE 116 MG/DL (70-110)
[2017-10-09 06:07] LABS: GLUCOSE COMMENT 1 Received Meds; GLUCOSE,POINT OF CARE 176 MG/DL (70-110)
[2017-10-09] MEDS: OXYGEN THERAPY IH SCH (07:20)
[2017-10-09 08:00] VITALS: BP 117/75
[2017-10-09] MEDS ORDERED: DEXTROSE 50%-WATER 25 GM/50 ML SYRINGE IVP PRN (08:45)
[2017-10-09] MEDS: PANTOPRAZOLE SODIUM 40 MG/VIAL IVP SCH (09:12)
[2017-10-09] MEDS: INSULIN ASPART 100 UNITS/ML SQ PRN ×2 (11:16→17:20)
[2017-10-09] MEDS ORDERED: INSULIN GLARGINE,HUM.REC.ANLOG 100 UNITS/ML SQ ONE (11:45)
[2017-10-09 12:00] VITALS: BP 114/76
[2017-10-09 13:36] VITALS: BP 116/77
[2017-10-09] MEDS ORDERED: INSU100C6 SQ (15:21)
[2017-10-09 15:37] VITALS: BP 145/57
[2017-10-09] MEDS: CefTRIAXone 1 GM/DEXTROSE 50 ML IV SCH (17:00)
[2017-10-09 17:57] LABS: GLUCOSE COMMENT 1 Received Meds; GLUCOSE,POINT OF CARE 218 MG/DL (70-110)
[2017-10-09] MEDS ORDERED: INSULIN GLARGINE,HUM.REC.ANLOG 100 UNITS/ML SQ SCH (21:00)
[2017-10-10] MEDS ORDERED: INSULIN GLARGINE,HUM.REC.ANLOG 100 UNITS/ML SQ SCH ×2 (08:00)
[2017-10-10 17:38] LABS: GLUCOSE COMMENT 1 Received Meds; GLUCOSE,POINT OF CARE 220 MG/DL (70-110)
== END 2017-10-09 18:00 | disposition home or self-care (01) | DRG 469 ==
LOC: EMS 14:14 → ICU 19:17 → 5N 10-09 13:10
PROVIDERS: ADMIT Internal Medicine; ATTEND Internal Medicine
PROC: 5A1945Z Respiratory Ventilation, 24-96 Consecutive Hours (ICD-10-PCS; principal; 2017-10-04)
PROC: 0BH17EZ Insertion of Endotracheal Airway into Trachea, Via Natural or Artificial Opening (ICD-10-PCS; 2017-10-04)
DX: N17.9 Acute kidney failure, unspecified (principal); J96.00 Acute respiratory failure, unspecified whether with hypoxia or hypercapnia; G93.41 Metabolic encephalopathy; E10.10 Type 1 diabetes mellitus with ketoacidosis without coma; E44.0 Moderate protein-calorie malnutrition; E72.20 Disorder of urea cycle metabolism, unspecified; R65.10 Systemic inflammatory response syndrome (SIRS) of non-infectious origin without acute organ dysfunction; E87.0 Hyperosmolality and hypernatremia; Z68.1 Body mass index [BMI] 19.9 or less, adult; E87.1 Hypo-osmolality and hyponatremia; D72.829 Elevated white blood cell count, unspecified; E83.42 Hypomagnesemia; E83.39 Other disorders of phosphorus metabolism; E87.8 Other disorders of electrolyte and fluid balance, not elsewhere classified; E87.6 Hypokalemia; Z79.4 Long term (current) use of insulin; Z83.3 Family history of diabetes mellitus; Z91.14 Patient's other noncompliance with medication regimen; Z91.19 Patient's noncompliance with other medical treatment and regimen; Z78.1 Physical restraint status
CPT/HCPCS: 31500; 36556; 51702; 70450; 82010; 82436; 82805; 82962; 83605; 83735; 83930; 83935; 84100; 84132; 84133; 84145; 84300; 87040; 87070; 87081; 87086; 87205; 87804; 92610; 93005; 94002; 94003; 96361; 96365; 96374; 96375; 99291; C9113; G0480; G0481; J0696; J1815; J2704; J3475; J3480; J3490; J7030; J7050; J7060

== ENCOUNTER 2017-12-06 05:30 | Inpatient (IN) | payer MEDICAID ==
[~2017-12-06] VITALS: Ht 165.1 cm; Wt 55.9 kg
[~2017-12-06 05:30] MED LIST: INSLAN SQ; INSU100C6 SQ
[2017-12-06 05:43] LABS: GLUCOSE,POINT OF CARE 431 MG/DL (70-110)
[2017-12-06] MEDS ORDERED: SODIUM CHLORIDE 0.9% 1,000 ML IV ONE (06:00)
[2017-12-06 06:09] LABS: HEMATOCRIT 45.8 % (41-53); HEMOGLOBIN 14.4 g/dL (13.5-17.5); MEAN CORPUSCULAR HGB CONC 31.4 G/dL (31.0-37.0); MEAN CORPUSCULAR VOLUME 102 fL (80-100); PLATELET COUNT (AUTO) 302 K/uL (150-450); RED BLOOD CELL COUNT(AUTO) 4.48 MIL/uL (4.50-5.90)
[2017-12-06 06:18] LABS: APPEARANCE,URINE CLOUDY (CLEAR); BILIRUBIN,URINE NEGATIVE (NEGATIVE); GLUCOSE, URINE (UA) >=1000 mg/dL (NEGATIVE); KETONES,URINE >=80 mg/dL (NEGATIVE); LEUKOCYTE ESTERASE ,URINE NEGATIVE (NEGATIVE); NITRATE,URINE NEGATIVE (NEGATIVE); OCCULT BLOOD,URINE TRACE (NEGATIVE); PROTEIN,URINE POS 1+ (NEGATIVE); UROBILINOGEN,URINE 0.2 mg/dL (<=1.0)
[2017-12-06 06:23] LABS: ALANINE AMINOTRANSFERASE 19 U/L (12-78); ALKALINE PHOSPHATASE 190 U/L (46-116); BILIRUBIN,TOTAL 0.4 mg/dL (0.1-1.0); CALCIUM, TOTAL 7.7 mg/dL (8.8-10.5); CHLORIDE 98 mmol/L (98-107); CREATININE 1.22 mg/dL (0.60-1.30); GLOMERULAR FILTR. RATE CALC > 60 mL/min (>60); POTASSIUM 4.5 mmol/L (3.5-5.1); SODIUM SERUM 133 mmol/L (136-145); UREA NITROGEN, BLOOD 20 mg/dL (7-18)
[2017-12-06 06:28] LABS: GLUCOSE,RANDOM 493 mg/dL (70-110)
[2017-12-06] MEDS ORDERED: SODIUM BICARBONATE [ADULT] 8.4% 50 MEQ/50 ML SYRINGE IVP ONE ×2 (06:30→08:15)
[2017-12-06] MEDS ORDERED: INSULIN REGULAR, HUMAN 100 UNITS/ML IVP ONE ×2 (06:30→08:00)
[2017-12-06 06:35] LABS: LACTIC ACID 1.2 mmol/L (0.4-2.0)
[2017-12-06 06:37] LABS: ABG BASE EXCESS -34.1 mmol/L (-2.0-3.0); ABG CARBOXYHEMOGLOBIN 0.5 % (0.0-3.0); ABG METHEMOGLOBIN 0.4 % (0.0-1.5); ABG OXYHEMOGLOBIN 98.1 % (94.0-100.0); ABG TOTAL HEMOGLOBIN 13.6 G/dL (12.0-18.0); PO2, ARTERIAL BG 149.8 mmHg (80.0-100.0); SOURCE, BLOOD GAS ARTERIAL; TEMPERATURE, FAHRENHEIT, BG 96.3 FAHREN (96.0-98.6)
[2017-12-06 06:38] LABS: ABG HCO3 3.5 mmol/L (22.0-26.0); ABG PCO2 9 mmHg (35-45); SITE, BLOOD GAS RT RADIAL
[2017-12-06] MEDS ORDERED: INSULIN REGULAR, HUMAN 100 UNITS in SODIUM CHLORIDE 0.9% 99 ML IV PRN ×2 (06:40)
[2017-12-06] MEDS ORDERED: DEXTROSE 5%-WATER 1,000 ML IV SCH (06:40)
[2017-12-06 06:42] LABS: B-TYPE NATRIURETIC PEPTIDE 65 pg/mL (0-100)
[2017-12-06 06:43] LABS: BACTERIA,URINE Rare /HPF (None Seen); WBC,URINE 0-2 /HPF (0-5)
[2017-12-06 06:44] LABS: AMORPHOUS SEDIMENT,UR Moderate /LPF (None Seen)
[2017-12-06] MEDS ORDERED: DEXTROSE 50%-WATER 25 GM/50 ML SYRINGE IVP PRN (06:45)
[2017-12-06 06:46] LABS: BAND NEUTROPHILS % (MANUAL) 17 % (1-5); LYMPHOCYTES % (MANUAL) 13 % (22-44); MONOCYTES % (MANUAL) 8 % (2-9); REACTIVE LYMPHOCYTES 3 % (0-0); SEGMENTED NEUTROPHILS % 59 % (40-70)
[2017-12-06 06:54] LABS: ANION GAP 30 mmol/L (8-16); CARBON DIOXIDE < 5 mmol/L (22-29)
[2017-12-06 07:25] LABS: ASPARTATE AMINOTRANSFERASE 19 U/L (15-37)
[2017-12-06] MEDS ORDERED: ONDANSETRON HCL 4 MG/2 ML VIAL IVP PRN ×2 (07:30→08:00)
[2017-12-06] MEDS ORDERED: 0.9% SODIUM CHLORIDE 10 ML SYRINGE IVP PRN (07:30)
[2017-12-06] MEDS ORDERED: MAGNESIUM HYDROXIDE SUSPENSION 30 ML UDCUP PO PRN (08:00)
[2017-12-06] MEDS ORDERED: SODIUM CHLORIDE 0.45% 1,000 ML IV PRN (08:00)
[2017-12-06] MEDS ORDERED: BISACODYL 10 MG RECTAL RECTAL SUPPOSITORY PR PRN (08:00)
[2017-12-06] MEDS ORDERED: ACETAMINOPHEN 325 MG TABLET PO PRN (08:00)
[2017-12-06] MEDS ORDERED: MORPHINE SULFATE 2 MG/ML SYRINGE IVP PRN (08:00)
[2017-12-06] MEDS ORDERED: SODIUM CHLORIDE 0.9% 1,000 ML IV SCH (08:00)
[2017-12-06] MEDS ORDERED: INSULIN REGULAR, HUMAN 100 UNITS/ML IVP PRN (08:00)
[2017-12-06 08:12] LABS: GLUCOSE,POINT OF CARE 354 MG/DL (70-110)
[2017-12-06] MEDS: DOCUSATE SODIUM 100 MG CAPSULE PO SCH ×2 (09:00→20:15)
[2017-12-06] MEDS: PANTOPRAZOLE SODIUM 40 MG DR TABLET PO SCH (09:00)
[2017-12-06] MEDS: HEPARIN SODIUM,PORCINE 5,000 UNITS/ML VIAL SQ SCH ×2 (09:11→15:27)
[2017-12-06] MEDS: DEXTROSE 5%-0.45% SODIUM CHL 1,000 ML IV PRN ×2 (09:13→20:15)
[2017-12-06] MEDS: POTASSIUM CHL 20 MEQ/0.45% NS 1,000 ML IV PRN ×3 (09:24→22:58)
[2017-12-06 10:17] LABS: BASOPHILS % (AUTO) 0.8 % (0.0-2.0); CALCIUM, TOTAL 7.5 mg/dL (8.8-10.5); CHLORIDE 108 mmol/L (98-107); EOSINOPHILS % (AUTO) 0.1 % (1.0-6.0); GLOMERULAR FILTR. RATE CALC > 60 mL/min (>60); GLUCOSE,RANDOM 272 mg/dL (70-110); HEMATOCRIT 40.7 % (41-53); HEMOGLOBIN 13.3 g/dL (13.5-17.5); LYMPHOCYTES # (AUTO) 5.2 K/uL (1.0-4.8); LYMPHOCYTES % (AUTO) 15.1 % (22.0-44.0); MEAN CORPUSCULAR HEMOGLOBIN 31.9 pg (26.0-34.0); MEAN CORPUSCULAR HGB CONC 32.6 G/dL (31.0-37.0); MEAN CORPUSCULAR VOLUME 98 fL (80-100); MONOCYTES # (AUTO) 3.2 K/uL (0.1-1.0); MONOCYTES % (AUTO) 9.4 % (2.0-9.0); NEUTROPHILS # (AUTO) 25.5 K/uL (1.8-7.7); NEUTROPHILS % (AUTO) 74.6 % (40.0-70.0); PLATELET COUNT (AUTO) 236 K/uL (150-450); POTASSIUM 3.2 mmol/L (3.5-5.1); RED BLOOD CELL COUNT(AUTO) 4.16 MIL/uL (4.50-5.90); RED CELL DISTRIBUTION WIDTH 14.6 % (11.5-14.5); SODIUM SERUM 142 mmol/L (136-145); UREA NITROGEN, BLOOD 16 mg/dL (7-18)
[2017-12-06 10:26] LABS: ANION GAP 29 mmol/L (8-16); CARBON DIOXIDE < 5 mmol/L (22-29)
[2017-12-06] MEDS: POTASSIUM CHLORIDE 40 MEQ in SODIUM CHLORIDE 0.45% 1,000 ML IV PRN ×4 (11:20→20:15)
[2017-12-06 12:00] VITALS: BP 122/67
[2017-12-06] MEDS: INSULIN REGULAR, HUMAN 100 UNITS in SODIUM CHLORIDE 0.9% 99 ML IV PRN ×4 (12:43→22:59)
[2017-12-06 15:54] LABS: ANION GAP 21 mmol/L (8-16); CHLORIDE 114 mmol/L (98-107); CREATININE 1.07 mg/dL (0.60-1.30); GLOMERULAR FILTR. RATE CALC > 60 mL/min (>60); GLUCOSE,RANDOM 116 mg/dL (70-110); POTASSIUM 3.2 mmol/L (3.5-5.1); UREA NITROGEN, BLOOD 12 mg/dL (7-18)
[2017-12-06 15:58] LABS: CARBON DIOXIDE 8 mmol/L (22-29)
[2017-12-06 15:59] LABS: SODIUM SERUM 143 mmol/L (136-145)
[2017-12-06 16:00] VITALS: BP 120/73
[2017-12-06] MEDS: DEXTROSE 50%-WATER 25 GM/50 ML SYRINGE IVP PRN (18:57)
[2017-12-06 20:00] VITALS: BP 114/69
[2017-12-06 20:06] LABS: ANION GAP 14 mmol/L (8-16); CALCIUM, TOTAL 7.5 mg/dL (8.8-10.5); CARBON DIOXIDE 13 mmol/L (22-29); CHLORIDE 113 mmol/L (98-107); CREATININE 1.15 mg/dL (0.60-1.30); GLOMERULAR FILTR. RATE CALC > 60 mL/min (>60); GLUCOSE,RANDOM 179 mg/dL (70-110); POTASSIUM 4.2 mmol/L (3.5-5.1); SODIUM SERUM 140 mmol/L (136-145); UREA NITROGEN, BLOOD 12 mg/dL (7-18)
[2017-12-06 23:53] LABS: GLUCOSE,POINT OF CARE 160 MG/DL (70-110)
[2017-12-06 23:53] LABS: GLUCOSE,POINT OF CARE 149 MG/DL (70-110)
[2017-12-06 23:53] LABS: GLUCOSE,POINT OF CARE 97 MG/DL (70-110)
[2017-12-06 23:53] LABS: GLUCOSE,POINT OF CARE 70 MG/DL (70-110)
[2017-12-06 23:53] LABS: GLUCOSE,POINT OF CARE 87 MG/DL (70-110)
[2017-12-06 23:53] LABS: GLUCOSE,POINT OF CARE 98 MG/DL (70-110)
[2017-12-06 23:53] LABS: GLUCOSE,POINT OF CARE 158 MG/DL (70-110)
[2017-12-06 23:53] LABS: GLUCOSE,POINT OF CARE 217 MG/DL (70-110)
[2017-12-06 23:53] LABS: GLUCOSE,POINT OF CARE 190 MG/DL (70-110)
[2017-12-06 23:53] LABS: GLUCOSE,POINT OF CARE 225 MG/DL (70-110)
[2017-12-06 23:53] LABS: GLUCOSE,POINT OF CARE 119 MG/DL (70-110)
[2017-12-06 23:53] LABS: GLUCOSE,POINT OF CARE 237 MG/DL (70-110)
[2017-12-06 23:57] LABS: ANION GAP 14 mmol/L (8-16); CARBON DIOXIDE 13 mmol/L (22-29); CHLORIDE 111 mmol/L (98-107); CREATININE 1.17 mg/dL (0.60-1.30); GLOMERULAR FILTR. RATE CALC > 60 mL/min (>60); GLUCOSE,RANDOM 229 mg/dL (70-110); POTASSIUM 3.7 mmol/L (3.5-5.1); SODIUM SERUM 138 mmol/L (136-145); UREA NITROGEN, BLOOD 12 mg/dL (7-18)
[2017-12-07] VITALS (11 sets, daily range): BP systolic 94–120; BP diastolic 55–87
[2017-12-07] MEDS: POTASSIUM CHLORIDE 40 MEQ in SODIUM CHLORIDE 0.45% 1,000 ML IV PRN ×4 (01:34→13:16)
[2017-12-07] MEDS: HEPARIN SODIUM,PORCINE 5,000 UNITS/ML VIAL SQ SCH ×4 (01:34→23:26)
[2017-12-07 02:13] LABS: GLUCOSE,POINT OF CARE 215 MG/DL (70-110)
[2017-12-07 02:13] LABS: GLUCOSE,POINT OF CARE 196 MG/DL (70-110)
[2017-12-07 02:13] LABS: GLUCOSE,POINT OF CARE 170 MG/DL (70-110)
[2017-12-07 02:13] LABS: GLUCOSE,POINT OF CARE 162 MG/DL (70-110)
[2017-12-07 02:13] LABS: GLUCOSE,POINT OF CARE 230 MG/DL (70-110)
[2017-12-07] MEDS: DEXTROSE 50%-WATER 25 GM/50 ML SYRINGE IVP PRN ×3 (03:41→16:31)
[2017-12-07 03:43] LABS: GLUCOSE,POINT OF CARE 74 MG/DL (70-110)
[2017-12-07 04:18] LABS: GLUCOSE,POINT OF CARE 134 MG/DL (70-110)
[2017-12-07 04:18] LABS: GLUCOSE,POINT OF CARE 60 MG/DL (70-110)
[2017-12-07 05:04] LABS: HEMATOCRIT 34.5 % (41-53); HEMOGLOBIN 11.8 g/dL (13.5-17.5); MEAN CORPUSCULAR HEMOGLOBIN 31.8 pg (26.0-34.0); MEAN CORPUSCULAR HGB CONC 34.3 G/dL (31.0-37.0); MEAN CORPUSCULAR VOLUME 93 fL (80-100); PLATELET COUNT (AUTO) 205 K/uL (150-450); RED BLOOD CELL COUNT(AUTO) 3.72 MIL/uL (4.50-5.90); RED CELL DISTRIBUTION WIDTH 14.2 % (11.5-14.5)
[2017-12-07 05:20] LABS: ALANINE AMINOTRANSFERASE 13 U/L (12-78); ALBUMIN 2.8 g/dL (3.4-5.0); ALKALINE PHOSPHATASE 119 U/L (46-116); ANION GAP 12 mmol/L (8-16); ASPARTATE AMINOTRANSFERASE 16 U/L (15-37); BILIRUBIN,TOTAL 0.3 mg/dL (0.1-1.0); CALCIUM, TOTAL 8.3 mg/dL (8.8-10.5); CARBON DIOXIDE 14 mmol/L (22-29); CHLORIDE 114 mmol/L (98-107); CREATININE 0.95 mg/dL (0.60-1.30); GLOMERULAR FILTR. RATE CALC > 60 mL/min (>60); GLUCOSE,RANDOM 157 mg/dL (70-110); SODIUM SERUM 140 mmol/L (136-145); UREA NITROGEN, BLOOD 11 mg/dL (7-18)
[2017-12-07 05:49] LABS: PHOSPHORUS 1.3 mg/dL (2.5-4.9)
[2017-12-07 06:38] LABS: GLUCOSE,POINT OF CARE 112 MG/DL (70-110)
[2017-12-07 06:38] LABS: GLUCOSE,POINT OF CARE 150 MG/DL (70-110)
[2017-12-07 06:48] LABS: GLUCOSE,POINT OF CARE 164 MG/DL (70-110)
[2017-12-07] MEDS ORDERED: MAGNESIUM OXIDE 400 MG TABLET PO PRN (07:00)
[2017-12-07] MEDS ORDERED: DEXTROSE 50%-WATER 25 GM/50 ML SYRINGE IVP PRN ×4 (07:00→17:30)
[2017-12-07] MEDS ORDERED: SODIUM BICARBONATE 50 MEQ in SODIUM CHLORIDE 0.45% 1,000 ML IV SCH (07:00)
[2017-12-07] MEDS ORDERED: MAGNESIUM SULFATE 4 GM/WATER 100 ML IV PRN (07:00)
[2017-12-07] MEDS ORDERED: INSULIN ASPART 100 UNITS/ML SQ PRN (07:00)
[2017-12-07] MEDS ORDERED: MAGNESIUM SULFATE 2 GM in DEXTROSE 5%-WATER 50 ML IV PRN (07:00)
[2017-12-07 07:23] LABS: BAND NEUTROPHILS % (MANUAL) 20 % (1-5); LYMPHOCYTES % (MANUAL) 7 % (22-44); MONOCYTES % (MANUAL) 9 % (2-9); SEGMENTED NEUTROPHILS % 64 % (40-70)
[2017-12-07 09:04] LABS: ANION GAP 18 mmol/L (8-16); CALCIUM, TOTAL 8.7 mg/dL (8.8-10.5); CARBON DIOXIDE 10 mmol/L (22-29); CHLORIDE 110 mmol/L (98-107); CREATININE 0.99 mg/dL (0.60-1.30); GLOMERULAR FILTR. RATE CALC > 60 mL/min (>60); GLUCOSE,RANDOM 284 mg/dL (70-110); POTASSIUM 3.9 mmol/L (3.5-5.1); SODIUM SERUM 138 mmol/L (136-145); UREA NITROGEN, BLOOD 11 mg/dL (7-18)
[2017-12-07] MEDS: DOCUSATE SODIUM 100 MG CAPSULE PO SCH ×2 (09:18→20:10)
[2017-12-07] MEDS: HYDROCODONE/ACETAMINOPHEN 5-325 MG TABLET PO PRN ×3 (09:19→20:10)
[2017-12-07] MEDS: PANTOPRAZOLE SODIUM 40 MG DR TABLET PO SCH (09:19)
[2017-12-07] MEDS: INSULIN DETEMIR 100 UNITS/ML SQ SCH ×2 (09:20→20:12)
[2017-12-07 09:52] LABS: GLUCOSE,POINT OF CARE 205 MG/DL (70-110)
[2017-12-07] MEDS ORDERED: POTASSIUM CHL 20 MEQ/0.45% NS 1,000 ML IV PRN (10:17)
[2017-12-07] MEDS ORDERED: INSULIN REGULAR, HUMAN 100 UNITS in SODIUM CHLORIDE 0.9% 99 ML IV PRN ×4 (10:17→14:15)
[2017-12-07] MEDS ORDERED: SODIUM CHLORIDE 0.9% 1,000 ML IV SCH (10:17)
[2017-12-07] MEDS ORDERED: DEXTROSE 5%-0.45% SODIUM CHL 1,000 ML IV PRN (10:17)
[2017-12-07] MEDS ORDERED: SODIUM CHLORIDE 0.45% 1,000 ML IV PRN (10:17)
[2017-12-07] MEDS ORDERED: INSULIN REGULAR, HUMAN 100 UNITS/ML IVP ONE (10:30)
[2017-12-07] MEDS ORDERED: SODIUM CHLORIDE 0.9% 500 ML IV ONE (10:40)
[2017-12-07] MEDS: POTASSIUM PHOS/SODIUM PHOS MIXTURE 1 POWDER PACKET PO SCH ×2 (10:42→20:10)
[2017-12-07] MEDS: INSULIN REGULAR, HUMAN 100 UNITS/ML IVP PRN ×2 (12:06→13:17)
[2017-12-07 12:42] LABS: ANION GAP 16 mmol/L (8-16); CALCIUM, TOTAL 8.6 mg/dL (8.8-10.5); CARBON DIOXIDE 12 mmol/L (22-29); CHLORIDE 108 mmol/L (98-107); CREATININE 1.19 mg/dL (0.60-1.30); GLOMERULAR FILTR. RATE CALC > 60 mL/min (>60); GLUCOSE,RANDOM 325 mg/dL (70-110); POTASSIUM 3.8 mmol/L (3.5-5.1); SODIUM SERUM 136 mmol/L (136-145); UREA NITROGEN, BLOOD 11 mg/dL (7-18)
[2017-12-07 13:33] LABS: GLUCOSE,POINT OF CARE 321 MG/DL (70-110)
[2017-12-07 13:33] LABS: GLUCOSE,POINT OF CARE 356 MG/DL (70-110)
[2017-12-07 13:33] LABS: GLUCOSE,POINT OF CARE 278 MG/DL (70-110)
[2017-12-07 13:33] LABS: GLUCOSE,POINT OF CARE 347 MG/DL (70-110)
[2017-12-07] MEDS ORDERED: DEXTROSE 5%-0.45% SODIUM CHL 1,000 ML IV SCH (14:15)
[2017-12-07] MEDS ORDERED: POTASSIUM CHLORIDE 20 MEQ ER TABLET PO PRN (14:45)
[2017-12-07 16:39] LABS: ANION GAP 8 mmol/L (8-16); CARBON DIOXIDE 19 mmol/L (22-29); CHLORIDE 111 mmol/L (98-107); CREATININE 0.97 mg/dL (0.60-1.30); GLOMERULAR FILTR. RATE CALC > 60 mL/min (>60); GLUCOSE,RANDOM 202 mg/dL (70-110); POTASSIUM 3.6 mmol/L (3.5-5.1); SODIUM SERUM 138 mmol/L (136-145); UREA NITROGEN, BLOOD 9 mg/dL (7-18)
[2017-12-07] MEDS: INSULIN REGULAR, HUMAN 100 UNITS/ML SQ PRN ×2 (17:49→20:15)
[2017-12-07 18:08] LABS: GLUCOSE,POINT OF CARE 120 MG/DL (70-110)
[2017-12-07 18:08] LABS: GLUCOSE,POINT OF CARE 197 MG/DL (70-110)
[2017-12-07 18:08] LABS: GLUCOSE,POINT OF CARE 175 MG/DL (70-110)
[2017-12-07 18:12] LABS: CREATININE,URINE RANDOM 13.5 mg/dL (30.0-125.0)
[2017-12-07 20:37] LABS: ANION GAP 12 mmol/L (8-16); CALCIUM, TOTAL 8.5 mg/dL (8.8-10.5); CARBON DIOXIDE 20 mmol/L (22-29); CHLORIDE 106 mmol/L (98-107); CREATININE 0.99 mg/dL (0.60-1.30); GLOMERULAR FILTR. RATE CALC > 60 mL/min (>60); GLUCOSE,RANDOM 207 mg/dL (70-110); POTASSIUM 3.3 mmol/L (3.5-5.1); SODIUM SERUM 138 mmol/L (136-145); UREA NITROGEN, BLOOD 7 mg/dL (7-18)
[2017-12-07 20:48] LABS: GLUCOSE,POINT OF CARE 209 MG/DL (70-110)
[2017-12-07 20:48] LABS: GLUCOSE,POINT OF CARE 239 MG/DL (70-110)
[2017-12-07] MEDS: POTASSIUM CHLORIDE 20 MEQ ER TABLET PO PRN (23:26)
[2017-12-08] VITALS (8 sets, daily range): BP systolic 11–113; BP diastolic 45–73
[2017-12-08] MEDS: ZOLPIDEM TARTRATE 5 MG TABLET PO PRN (01:56)
[2017-12-08 05:05] LABS: BASOPHILS % (AUTO) 0.8 % (0.0-2.0); EOSINOPHILS % (AUTO) 0.7 % (1.0-6.0); HEMATOCRIT 35.8 % (41-53); HEMOGLOBIN 12.2 g/dL (13.5-17.5); LYMPHOCYTES # (AUTO) 2.7 K/uL (1.0-4.8); LYMPHOCYTES % (AUTO) 20.1 % (22.0-44.0); MEAN CORPUSCULAR HEMOGLOBIN 31.4 pg (26.0-34.0); MEAN CORPUSCULAR HGB CONC 34.1 G/dL (31.0-37.0); MEAN CORPUSCULAR VOLUME 92 fL (80-100); MONOCYTES # (AUTO) 1.3 K/uL (0.1-1.0); MONOCYTES % (AUTO) 9.9 % (2.0-9.0); NEUTROPHILS # (AUTO) 9.2 K/uL (1.8-7.7); NEUTROPHILS % (AUTO) 68.5 % (40.0-70.0); PLATELET COUNT (AUTO) 184 K/uL (150-450); RED CELL DISTRIBUTION WIDTH 14.4 % (11.5-14.5)
[2017-12-08 05:22] LABS: ANION GAP 10 mmol/L (8-16); CALCIUM, TOTAL 8.5 mg/dL (8.8-10.5); CARBON DIOXIDE 20 mmol/L (22-29); CHLORIDE 111 mmol/L (98-107); CREATININE 0.77 mg/dL (0.60-1.30); GLOMERULAR FILTR. RATE CALC > 60 mL/min (>60); GLUCOSE,RANDOM 69 mg/dL (70-110); PHOSPHORUS 2.9 mg/dL (2.5-4.9); POTASSIUM 3.3 mmol/L (3.5-5.1); SODIUM SERUM 141 mmol/L (136-145); UREA NITROGEN, BLOOD 8 mg/dL (7-18)
[2017-12-08 05:30] LABS: HEMOGLOBIN A1C 13.6 % (4.5-6.2)
[2017-12-08] MEDS: POTASSIUM CHLORIDE 20 MEQ ER TABLET PO PRN (06:11)
[2017-12-08 07:18] LABS: GLUCOSE,POINT OF CARE 49 MG/DL (70-110)
[2017-12-08 07:22] LABS: GLUCOSE,POINT OF CARE 171 MG/DL (70-110)
[2017-12-08 07:23] LABS: GLUCOSE,POINT OF CARE 113 MG/DL (70-110)
[2017-12-08] MEDS: DOCUSATE SODIUM 100 MG CAPSULE PO SCH ×2 (07:57→20:34)
[2017-12-08] MEDS: INSULIN DETEMIR 100 UNITS/ML SQ SCH ×2 (08:58→22:45)
[2017-12-08] MEDS: PANTOPRAZOLE SODIUM 40 MG DR TABLET PO SCH (08:58)
[2017-12-08] MEDS: HEPARIN SODIUM,PORCINE 5,000 UNITS/ML VIAL SQ SCH ×3 (08:59→22:46)
[2017-12-08] MEDS: INSULIN REGULAR, HUMAN 100 UNITS/ML SQ PRN ×3 (11:17→20:35)
[2017-12-08] MEDS ORDERED: SODIUM BICARBONATE 50 MEQ in SODIUM CHLORIDE 0.45% 1,000 ML IV ONE (12:30)
[2017-12-08 14:47] LABS: ANION GAP 11 mmol/L (8-16); CALCIUM, TOTAL 8.6 mg/dL (8.8-10.5); CARBON DIOXIDE 19 mmol/L (22-29); CHLORIDE 107 mmol/L (98-107); CREATININE 1.08 mg/dL (0.60-1.30); GLOMERULAR FILTR. RATE CALC > 60 mL/min (>60); GLUCOSE,RANDOM 210 mg/dL (70-110); POTASSIUM 3.4 mmol/L (3.5-5.1); SODIUM SERUM 137 mmol/L (136-145); UREA NITROGEN, BLOOD 12 mg/dL (7-18)
[2017-12-08 19:54] LABS: GLUCOMETER DEV NAME(LOC) 6N 1E; GLUCOSE,POINT OF CARE 140 MG/DL (70-110)
[2017-12-08 21:41] LABS: ANION GAP 11 mmol/L (8-16); CALCIUM, TOTAL 8.9 mg/dL (8.8-10.5); CARBON DIOXIDE 23 mmol/L (22-29); CHLORIDE 103 mmol/L (98-107); CREATININE 1.05 mg/dL (0.60-1.30); GLOMERULAR FILTR. RATE CALC > 60 mL/min (>60); GLUCOSE,RANDOM 283 mg/dL (70-110); POTASSIUM 3.3 mmol/L (3.5-5.1); SODIUM SERUM 137 mmol/L (136-145); UREA NITROGEN, BLOOD 12 mg/dL (7-18)
[2017-12-08 22:28] LABS: GLUCOMETER DEV NAME(LOC) 6N 1E; GLUCOSE,POINT OF CARE 204 MG/DL (70-110)
[2017-12-08 22:57] LABS: GLUCOSE,POINT OF CARE 392 MG/DL (70-110)
[2017-12-09] MEDS: ZOLPIDEM TARTRATE 5 MG TABLET PO PRN (02:26)
[2017-12-09 04:00] VITALS: BP 112/60
[2017-12-09 06:09] LABS: ANION GAP 8 mmol/L (8-16); CALCIUM, TOTAL 8.4 mg/dL (8.8-10.5); CARBON DIOXIDE 27 mmol/L (22-29); CHLORIDE 107 mmol/L (98-107); CREATININE 0.62 mg/dL (0.60-1.30); GLOMERULAR FILTR. RATE CALC > 60 mL/min (>60); GLUCOSE,RANDOM 108 mg/dL (70-110); SODIUM SERUM 142 mmol/L (136-145); UREA NITROGEN, BLOOD 10 mg/dL (7-18)
[2017-12-09 06:43] LABS: POTASSIUM 2.5 mmol/L (3.5-5.1)
[2017-12-09] MEDS: POTASSIUM CHL 10 MEQ/WATER 50 ML IV PRN ×4 (07:27→13:31)
[2017-12-09 07:28] VITALS: BP 109/68
[2017-12-09] MEDS ORDERED: SODIUM CHLORIDE 0.9% 1,000 ML IV ONE (07:43)
[2017-12-09] MEDS: HEPARIN SODIUM,PORCINE 5,000 UNITS/ML VIAL SQ SCH ×2 (07:54→15:12)
[2017-12-09] MEDS: DOCUSATE SODIUM 100 MG CAPSULE PO SCH (07:55)
[2017-12-09] MEDS: PANTOPRAZOLE SODIUM 40 MG DR TABLET PO SCH (08:06)
[2017-12-09] MEDS: INSULIN DETEMIR 100 UNITS/ML SQ SCH (08:56)
[2017-12-09 08:58] LABS: GLUCOMETER DEV NAME(LOC) 6N 1E; GLUCOSE,POINT OF CARE 187 MG/DL (70-110)
[2017-12-09 11:09] VITALS: BP 101/61
[2017-12-09] MEDS: INSULIN REGULAR, HUMAN 100 UNITS/ML SQ PRN ×2 (11:35→17:32)
[2017-12-09] MEDS ORDERED: POTASSIUM CHLORIDE 20 MEQ ER TABLET PO ONE (15:15)
[2017-12-09 15:57] VITALS: BP 112/59
[2017-12-09 17:39] LABS: GLUCOMETER DEV NAME(LOC) 6N 2D; GLUCOSE,POINT OF CARE 105 MG/DL (70-110)
[2017-12-09 17:39] LABS: GLUCOMETER DEV NAME(LOC) 6N 2D; GLUCOSE,POINT OF CARE 241 MG/DL (70-110)
[2017-12-09 17:39] LABS: GLUCOMETER DEV NAME(LOC) 6N 2D; GLUCOSE,POINT OF CARE 327 MG/DL (70-110)
== END 2017-12-09 18:40 | disposition home or self-care (01) | DRG 420 ==
LOC: EMS 05:31 → ICU 07:26 → 6N 12-08 13:13
PROVIDERS: ADMIT Internal Medicine; ATTEND Internal Medicine
DX: E11.10 Type 2 diabetes mellitus with ketoacidosis without coma (principal); R65.10 Systemic inflammatory response syndrome (SIRS) of non-infectious origin without acute organ dysfunction; E83.39 Other disorders of phosphorus metabolism; E86.0 Dehydration; D64.9 Anemia, unspecified; E87.6 Hypokalemia; I10 Essential (primary) hypertension; Z91.19 Patient's noncompliance with other medical treatment and regimen; Z79.4 Long term (current) use of insulin
CPT/HCPCS: 82570; 82805; 82962; 83036; 83605; 83735; 84100; 84132; 84156; 87040; 87081; 93005; 96361; 96365; 96374; 96375; 96376; 99291; J1644; J1815; J3475; J3480; J3490; J7030; J7040; J7050; J7060

== ENCOUNTER 2018-04-20 01:48 | Emergency (ER) | payer MEDICAID ==
[~2018-04-20] VITALS: Ht 165.1 cm; Wt 53.6 kg
[2018-04-20 02:08] LABS: GLUCOSE,POINT OF CARE 72 MG/DL (70-110)
[2018-04-20 03:25] LABS: BASOPHILS % (AUTO) 0.3 % (0.0-2.0); EOSINOPHILS % (AUTO) 0.8 % (1.0-6.0); HEMATOCRIT 35.4 % (41-53); HEMOGLOBIN 12.3 g/dL (13.5-17.5); LYMPHOCYTES # (AUTO) 3.2 K/uL (1.0-4.8); LYMPHOCYTES % (AUTO) 44.5 % (22.0-44.0); MEAN CORPUSCULAR HEMOGLOBIN 31.4 pg (26.0-34.0); MEAN CORPUSCULAR HGB CONC 34.7 G/dL (31.0-37.0); MEAN CORPUSCULAR VOLUME 91 fL (80-100); MONOCYTES # (AUTO) 1.2 K/uL (0.1-1.0); NEUTROPHILS # (AUTO) 2.7 K/uL (1.8-7.7); NEUTROPHILS % (AUTO) 37.4 % (40.0-70.0); PLATELET COUNT (AUTO) 271 K/uL (150-450); RED BLOOD CELL COUNT(AUTO) 3.91 MIL/uL (4.50-5.90); RED CELL DISTRIBUTION WIDTH 17.4 % (11.5-14.5)
[2018-04-20 03:25] LABS: APPEARANCE,URINE CLEAR (CLEAR); BILIRUBIN,URINE NEGATIVE (NEGATIVE); GLUCOSE, URINE (UA) NEGATIVE (NEGATIVE); KETONES,URINE NEGATIVE (NEGATIVE); LEUKOCYTE ESTERASE ,URINE NEGATIVE (NEGATIVE); NITRATE,URINE NEGATIVE (NEGATIVE); OCCULT BLOOD,URINE NEGATIVE (NEGATIVE); PROTEIN,URINE NEGATIVE (NEGATIVE); UROBILINOGEN,URINE 0.2 mg/dL (<=1.0)
[2018-04-20 03:29] LABS: AMPHET/METH SCREEN,URINE NEGATIVE (NEGATIVE); BARBITURATE SCREEN, URINE NEGATIVE (NEGATIVE); BENZODIAZEPINES SCREEN,URINE NEGATIVE (NEGATIVE); CANNABINOID SCREEN,URINE NEGATIVE (NEGATIVE); COCAINE SCREEN,URINE NEGATIVE (NEGATIVE); METHADONE SCREEN, URINE NEGATIVE (NEGATIVE); OPIATE SCREEN,URINE NEGATIVE (NEGATIVE)
[2018-04-20 03:31] LABS: ALANINE AMINOTRANSFERASE 37 U/L (12-78); ALBUMIN 3.2 g/dL (3.4-5.0); ALKALINE PHOSPHATASE 95 U/L (46-116); ANION GAP 6 mmol/L (8-16); ASPARTATE AMINOTRANSFERASE 76 U/L (15-37); BILIRUBIN,TOTAL 0.2 mg/dL (0.1-1.0); CALCIUM, TOTAL 8.3 mg/dL (8.8-10.5); CARBON DIOXIDE 30 mmol/L (22-29); CHLORIDE 105 mmol/L (98-107); CREATININE 0.75 mg/dL (0.60-1.30); GLOMERULAR FILTR. RATE CALC > 60 mL/min (>60); GLUCOSE,RANDOM 122 mg/dL (70-110); SODIUM SERUM 141 mmol/L (136-145); TOTAL PROTEIN, SERUM 6.2 g/dL (6.4-8.2); UREA NITROGEN, BLOOD 5 mg/dL (7-18)
[2018-04-20 03:37] LABS: POTASSIUM 2.7 mmol/L (3.5-5.1)
[2018-04-20 03:38] LABS: PHENCYCLIDINE SCREEN,URINE NEGATIVE (NEGATIVE)
[2018-04-20 03:55] LABS: BACTERIA,URINE None Seen /HPF (None Seen); RBC,URINE 0-2 /HPF (0-2); SQUAMOUS EPITHELIAL CELL,UR Rare /LPF (None Seen); WBC,URINE None Seen /HPF (0-5)
[2018-04-20] MEDS ORDERED: DiphenhydrAMINE HCL 25 MG CAPSULE PO ONE (04:00)
[2018-04-20] MEDS ORDERED: POTASSIUM CHLORIDE 20 MEQ ER TABLET PO ONE (04:00)
[2018-04-20 04:19] VITALS: BP 117/70
== END 2018-04-20 04:34 | disposition home or self-care (01) ==
LOC: EMS 01:49
DX: R60.0 Localized edema (principal); E87.6 Hypokalemia; E11.10 Type 2 diabetes mellitus with ketoacidosis without coma; J45.909 Unspecified asthma, uncomplicated; Z79.4 Long term (current) use of insulin
CPT/HCPCS: 99284

== ENCOUNTER 2018-04-23 15:21 | Emergency (ER) | payer MEDICAID ==
[~2018-04-23] VITALS: Ht 165.1 cm; Wt 53.6 kg
[2018-04-23] MEDS ORDERED: INSU100C14 SQ (15:25)
[2018-04-23 18:23] LABS: GLUCOSE,POINT OF CARE 242 MG/DL (70-110)
[2018-04-23 18:29] LABS: BASOPHILS % (AUTO) 0.6 % (0.0-2.0); EOSINOPHILS % (AUTO) 0.4 % (1.0-6.0); HEMATOCRIT 37.3 % (41-53); HEMOGLOBIN 12.6 g/dL (13.5-17.5); LYMPHOCYTES # (AUTO) 2.3 K/uL (1.0-4.8); LYMPHOCYTES % (AUTO) 35.4 % (22.0-44.0); MEAN CORPUSCULAR HEMOGLOBIN 31.5 pg (26.0-34.0); MEAN CORPUSCULAR HGB CONC 33.7 G/dL (31.0-37.0); MEAN CORPUSCULAR VOLUME 93 fL (80-100); NEUTROPHILS # (AUTO) 3.1 K/uL (1.8-7.7); NEUTROPHILS % (AUTO) 48.6 % (40.0-70.0); PLATELET COUNT (AUTO) 266 K/uL (150-450); RED BLOOD CELL COUNT(AUTO) 4.01 MIL/uL (4.50-5.90); RED CELL DISTRIBUTION WIDTH 17.7 % (11.5-14.5)
[2018-04-23 18:37] LABS: ANION GAP 8 mmol/L (8-16); CALCIUM, TOTAL 8.8 mg/dL (8.8-10.5); CARBON DIOXIDE 30 mmol/L (22-29); CHLORIDE 102 mmol/L (98-107); GLOMERULAR FILTR. RATE CALC > 60 mL/min (>60); GLUCOSE,RANDOM 255 mg/dL (70-110); POTASSIUM 4.3 mmol/L (3.5-5.1); SODIUM SERUM 140 mmol/L (136-145); UREA NITROGEN, BLOOD 9 mg/dL (7-18)
[2018-04-23 18:43] LABS: ALANINE AMINOTRANSFERASE 44 U/L (12-78); ALBUMIN 3.4 g/dL (3.4-5.0); ALKALINE PHOSPHATASE 85 U/L (46-116); ASPARTATE AMINOTRANSFERASE 32 U/L (15-37); BILIRUBIN,TOTAL 0.3 mg/dL (0.1-1.0); TOTAL PROTEIN, SERUM 6.5 g/dL (6.4-8.2)
[2018-04-23 18:46] LABS: B-TYPE NATRIURETIC PEPTIDE 10 pg/mL (0-100)
[2018-04-23 19:00] VITALS: BP 108/60
== END 2018-04-23 19:22 | disposition home or self-care (01) ==
LOC: EMS 15:21
DX: T67.7XXA Heat edema, initial encounter (principal); J45.909 Unspecified asthma, uncomplicated; E11.10 Type 2 diabetes mellitus with ketoacidosis without coma; Z79.4 Long term (current) use of insulin; X58.XXXA Exposure to other specified factors, initial encounter; Y93.89 Activity, other specified; Y92.89 Other specified places as the place of occurrence of the external cause; Y99.8 Other external cause status
CPT/HCPCS: 99285

== ENCOUNTER 2018-07-11 01:24 | Emergency (ER) | payer MEDICAID ==
[~2018-07-11] VITALS: Ht 165.1 cm; Wt 59.1 kg
[~2018-07-11 01:24] MED LIST changes: +INSU100C14 SQ; -INSU100C6 SQ
[2018-07-11 01:39] LABS: GLUCOSE,POINT OF CARE 46 MG/DL (70-110)
[2018-07-11] MEDS ORDERED: DEXTROSE 50%-WATER 25 GM/50 ML SYRINGE IVP ONE (01:57)
[2018-07-11 02:03] LABS: GLUCOSE,POINT OF CARE 100 MG/DL (70-110)
[2018-07-11 02:20] LABS: BASOPHILS % (AUTO) 0.9 % (0.0-2.0); EOSINOPHILS % (AUTO) 0.9 % (1.0-6.0); HEMATOCRIT 38.9 % (41-53); HEMOGLOBIN 12.8 g/dL (13.5-17.5); LYMPHOCYTES # (AUTO) 3.8 K/uL (1.0-4.8); LYMPHOCYTES % (AUTO) 43.8 % (22.0-44.0); MEAN CORPUSCULAR HEMOGLOBIN 31.2 pg (26.0-34.0); MEAN CORPUSCULAR HGB CONC 32.9 G/dL (31.0-37.0); MEAN CORPUSCULAR VOLUME 95 fL (80-100); MONOCYTES # (AUTO) 1.3 K/uL (0.1-1.0); MONOCYTES % (AUTO) 14.7 % (2.0-9.0); NEUTROPHILS # (AUTO) 3.5 K/uL (1.8-7.7); NEUTROPHILS % (AUTO) 39.7 % (40.0-70.0); PLATELET COUNT (AUTO) 212 K/uL (150-450)
[2018-07-11 02:26] LABS: ANION GAP 8 mmol/L (8-16); CALCIUM, TOTAL 8.8 mg/dL (8.8-10.5); CARBON DIOXIDE 29 mmol/L (22-29); CHLORIDE 104 mmol/L (98-107); CREATININE 0.75 mg/dL (0.60-1.30); GLOMERULAR FILTR. RATE CALC > 60 mL/min (>60); GLUCOSE,RANDOM 104 mg/dL (70-110); POTASSIUM 3.6 mmol/L (3.5-5.1); SODIUM SERUM 141 mmol/L (136-145); UREA NITROGEN, BLOOD 10 mg/dL (7-18)
[2018-07-11 02:32] LABS: ALANINE AMINOTRANSFERASE 134 U/L (12-78); ALBUMIN 3.1 g/dL (3.4-5.0); ALKALINE PHOSPHATASE 98 U/L (46-116); ASPARTATE AMINOTRANSFERASE 100 U/L (15-37); BILIRUBIN,TOTAL 0.2 mg/dL (0.1-1.0); LIPASE 90 U/L (73-393); TOTAL PROTEIN, SERUM 6.5 g/dL (6.4-8.2)
[2018-07-11 02:36] LABS: ACETONE,BLOOD NEGATIVE (NEGATIVE)
[2018-07-11 02:45] LABS: B-TYPE NATRIURETIC PEPTIDE 15 pg/mL (0-100)
[2018-07-11 03:34] LABS: GLUCOSE,POINT OF CARE 195 MG/DL (70-110)
[2018-07-11 03:42] VITALS: BP 140/80
== END 2018-07-11 03:43 | disposition home or self-care (01) ==
LOC: EMS 01:24
DX: E11.649 Type 2 diabetes mellitus with hypoglycemia without coma (principal); E11.10 Type 2 diabetes mellitus with ketoacidosis without coma; R79.89 Other specified abnormal findings of blood chemistry; R60.0 Localized edema; J45.909 Unspecified asthma, uncomplicated; F17.210 Nicotine dependence, cigarettes, uncomplicated; Z79.4 Long term (current) use of insulin
CPT/HCPCS: 36415; 80053; 82009; 82962; 83605; 83690; 83880; 85025; 99284; 99406; G0480

== ENCOUNTER 2018-10-17 12:33 | Emergency (ER) | payer MEDICAID ==
[~2018-10-17] VITALS: Ht 165.1 cm; Wt 61.8 kg
[2018-10-17] MEDS ORDERED: INSLAN SQ (12:36)
[2018-10-17] MEDS ORDERED: INSU100V SQ (12:37)
[2018-10-17 13:19] LABS: EOSINOPHILS % (AUTO) 1.1 % (1.0-6.0); HEMATOCRIT 40.7 % (41-53); HEMOGLOBIN 13.5 g/dL (13.5-17.5); LYMPHOCYTES % (AUTO) 42.3 % (22.0-44.0); MEAN CORPUSCULAR HGB CONC 33.2 G/dL (31.0-37.0); MEAN CORPUSCULAR VOLUME 91 fL (80-100); MONOCYTES # (AUTO) 0.6 K/uL (0.1-1.0); MONOCYTES % (AUTO) 12.5 % (2.0-9.0); NEUTROPHILS % (AUTO) 43.1 % (40.0-70.0); PLATELET COUNT (AUTO) 188 K/uL (150-450); RED CELL DISTRIBUTION WIDTH 15.6 % (11.5-14.5)
[2018-10-17 13:21] LABS: APPEARANCE,URINE CLEAR (CLEAR); BILIRUBIN,URINE NEGATIVE (NEGATIVE); GLUCOSE, URINE (UA) NEGATIVE (NEGATIVE); KETONES,URINE NEGATIVE (NEGATIVE); LEUKOCYTE ESTERASE ,URINE NEGATIVE (NEGATIVE); NITRATE,URINE NEGATIVE (NEGATIVE); OCCULT BLOOD,URINE NEGATIVE (NEGATIVE); PROTEIN,URINE NEGATIVE (NEGATIVE); UROBILINOGEN,URINE 0.2 mg/dL (<=1.0)
[2018-10-17 13:27] LABS: ANION GAP 4 mmol/L (8-16); CARBON DIOXIDE 35 mmol/L (22-29); CHLORIDE 103 mmol/L (98-107); CREATININE 0.77 mg/dL (0.60-1.30); GLOMERULAR FILTR. RATE CALC > 60 mL/min (>60); GLUCOSE,RANDOM 170 mg/dL (70-110); POTASSIUM 4.5 mmol/L (3.5-5.1); SODIUM SERUM 142 mmol/L (136-145); UREA NITROGEN, BLOOD 5 mg/dL (7-18)
[2018-10-17 13:30] LABS: BACTERIA,URINE None Seen /HPF (None Seen); RBC,URINE None Seen /HPF (0-2); SQUAMOUS EPITHELIAL CELL,UR Rare /LPF (None Seen); WBC,URINE None Seen /HPF (0-5)
[2018-10-17 13:32] LABS: ALANINE AMINOTRANSFERASE 36 U/L (12-78); ALBUMIN 3.3 g/dL (3.4-5.0); ALKALINE PHOSPHATASE 93 U/L (46-116); ASPARTATE AMINOTRANSFERASE 20 U/L (15-37); BILIRUBIN,TOTAL 0.3 mg/dL (0.1-1.0); LIPASE 69 U/L (73-393); TOTAL PROTEIN, SERUM 6.3 g/dL (6.4-8.2)
[2018-10-17] MEDS ORDERED: DiphenhydrAMINE HCL 25 MG CAPSULE PO ONE (16:30)
[2018-10-17 16:49] VITALS: BP 107/67
== END 2018-10-17 16:51 | disposition home or self-care (01) ==
LOC: EDUNIT# 12:33 → EMS 12:35
DX: R10.32 Left lower quadrant pain (principal); J45.909 Unspecified asthma, uncomplicated; F17.210 Nicotine dependence, cigarettes, uncomplicated; Z91.018 Allergy to other foods; Z79.4 Long term (current) use of insulin